=== PATIENT | female | born 1960 | race Caucasian/White ===

== ENCOUNTER → 2017-08-14 08:52 | Outpatient (CLI) | payer BC, SELFPAY ==
[2017-08-14 09:34] LABS: Basophils % 0.5 % (0.1-2.0); Eosinophils # 0.2 K/mm3 (0.0-0.4); Eosinophils % 2.6 % (0.1-12.0); Hematocrit 40.7 % (37.0-47.0); Hemoglobin 13.3 g/dL (12.2-16.2); Lymphocytes # 2.5 K/mm3 (0.7-4.5); Lymphocytes % 27.4 K/mm3 (10-50); Mean Corpuscular HGB Conc 32.7 g/dL (31.8-35.4); Mean Corpuscular Volume 91.5 fl (81-99); Monocytes # 0.4 K/mm3 (0.1-1.0); Monocytes % 4.6 % (1.7-9.3); Neutrophils # 5.8 K/mm3 (1.8-7.8); Neutrophils % 64.8 % (37.0-80.0); Platelet Count 319 K/mm3 (142-424); Red Blood Count 4.45 M/mm3 (4.20-5.40); Red Cell Distribution Width 14.7 % (11.5-17.5); White Blood Count 8.9 K/mm3 (4.8-10.8)
[2017-08-14 11:01] LABS: Alanine Aminotransferase 32 U/L (12-78); Albumin/Globulin Ratio 1.1 (1.1-1.8); Alkaline Phosphatase 81 U/L (46-116); Anion Gap 15.1 mEq/L (5-15); Aspartate Amino Transferase 21 U/L (15-37); Bilirubin,Total 0.5 mg/dL (0.2-1.0); Blood Urea Nitrogen 28 mg/dL (7-18); Calcium 9.5 mg/dL (8.5-10.1); Carbon Dioxide 27 mmol/L (21.0-32.0); Chloride 100 mmol/L (98-107); Chol/HDL Ratio 5.9 (1-3.5); Cholesterol 236 mg/dL (140-200); Creatinine,Serum 1.06 mg/dL (0.55-1.02); Estimated Glomerular Filt Rate 54 ml/min (>60); GFR (African American) 65 ML/MIN (>60); Globulin 3.6 gm/dl (1.3-3.2); Glucose 129 mg/dL (74-106); HDL Cholesterol 40 mg/dL (29-89); LDL Cholesterol 136 mg/dL (0-130); Potassium 4.1 mmoL/L (3.5-5.1); Sodium 138 mmol/L (136-145); Thyroid Stimulating Hormone 0.89 uIU/ml (0.358-3.740); Total Protein,Serum 7.6 gm/dL (6.4-8.2); Triglycerides 299 mg/dL (30-200); Uric Acid 5.9 mg/dL (2.6-7.2); VLDL Cholesterol 60 mg/dL (0-40)
== END ==
PROVIDERS: PCP Family Medicine; Visit Provider Family Medicine
DX: E78.5 Hyperlipidemia, unspecified (principal); I10 Essential (primary) hypertension; E03.9 Hypothyroidism, unspecified; E79.0 Hyperuricemia without signs of inflammatory arthritis and tophaceous disease
CPT/HCPCS: 36415; 80053; 80061; 83036; 84443; 84550; 85025

== ENCOUNTER → 2017-09-04 14:51 | Outpatient (CLI) | payer BC, SELFPAY ==
[2017-09-04 15:47] LABS: Erythrocyte Sedimentation Rate 37 mm/hr (0-30)
[2017-09-04 16:52] LABS: C-Reactive Protein 2.9 mg/L (0.0-0.9); Calcium 9.4 mg/dL (8.5-10.1); Magnesium 1.9 mg/dL (1.4-2.2); Potassium 4.4 mmoL/L (3.5-5.1)
[2017-09-07 06:31] LABS: Antinuclear Antibodies, IFA Negative (.); Folate >20.0 ng/mL (>3.0); RA Latex Turbid. <10.0 IU/mL (0.0-13.9); Vitamin B12 645 pg/mL (232-1245); Vitamin D 25 Hydroxy 39.9 ng/mL (30.0-100.0)
[2017-09-12 14:28] LABS: HLA-B27 Positive (.)
== END ==
PROVIDERS: Visit Provider Podiatrist
DX: M06.879 Other specified rheumatoid arthritis, unspecified ankle and foot (principal); D64.9 Anemia, unspecified
CPT/HCPCS: 36415; 82310; 82607; 82652; 82746; 83735; 84132; 85651; 86038; 86140; 86431; 86812

== ENCOUNTER → 2019-12-11 14:22 | Outpatient (POV) | payer BC, SELFPAY | DX: Z00.00 Encounter for general adult medical examination without abnormal findings (principal) ==

== ENCOUNTER → 2020-05-07 13:27 | Outpatient (CLI) | payer BC, SELFPAY ==
[2020-05-08 08:15] LABS: Covid-19 Nasal PCR Sendout P&C POSITIVE
== END ==
PROVIDERS: PCP Family Medicine; Visit Provider Family Medicine
DX: Z20.822 Contact with and (suspected) exposure to COVID-19 (principal); U07.1 COVID-19
CPT/HCPCS: U0004

== ENCOUNTER 2020-08-18 11:59 | Inpatient (IN) | payer BC, SELFPAY ==
[2020-08-18] VITALS (18 sets, daily range): BP systolic 82–162; BP diastolic 50–82; PULSE 68–84; RESP 12–20; TEMP 36.6–37.2; O2SAT 94–99; BMI 38.7
--- NOTE | 2020-08-18 11:08 | US_ITS ---
PROCEDURE: US EXTREMITY LT LIMITED CLINICAL INDICATION: ABSCESS Cellulitis, left groin mass with fever COMPARISON: No exams were available for comparison FINDINGS: There is subcutaneous edema. There is somewhat lunar shaped area of I so echogenicity present in the subcutaneous region in the left inguinal area. This measures approximately 10 cm in with and 2.5 cm in depth. There are low level echoes within this region. This region is fairly well circumscribed. Along the periphery of this area there is slight increased echogenicity. Suspect that the semilunar area represents an abscess. Phlegmonous changes also consideration. CT of the thigh/inguinal area with contrast suggested for confirmation. The patient was very tender and could not tolerate compression of this region. IMPRESSION: Abnormal ultrasound of the left groin with the fairly well-circumscribed semilunar shaped area of slight decreased echogenicity with low level echoes suspicious for an abscess. Suggest CT with contrast for confirmation. Dictated by: Giovanni Gonzalez MD 08/18/2020 13:32 Giovanni Gonzalez MD in [place] 08/18/2020 13:32
--- NOTE | 2020-08-18 12:55 | HMH.PHAVTE ---
[facility] Pharmacy VTE Monitoring - Patient Demographics Admission date: 08/18/20 Report Date: 08/18/20 Time: 12:55 Allergies/Adverse Reactions: Patient Allergies PCN (PENICILLIN) Allergy (Unknown, Uncoded 04/11/17 14:35) I-RASH Height: 1.68 m Weight: 108.862 kg - Prophylaxis VTE Prophylaxis Ordered?: Yes Types of VTE Prophylaxis: TEDS Knee High Location of Applied Device: Bilateral Lower Extremeties
[2020-08-18 12:57] LABS: Basophils % 0.2 % (0.1-2.0); Eosinophils # 0.2 K/mm3 (0.0-0.4); Hematocrit 34.6 % (37.0-47.0); Hemoglobin 11.6 g/dL (12.2-16.2); Lymphocytes # 1.9 K/mm3 (0.7-4.5); Lymphocytes % 10.6 % (10-50); Mean Corpuscular HGB Conc 33.6 g/dL (31.8-35.4); Mean Corpuscular Volume 89.2 fl (81-99); Monocytes % 5.6 % (1.7-9.3); Neutrophils # 14.8 K/mm3 (1.8-7.8); Neutrophils % 82.5 % (37.0-80.0); Platelet Count 384 K/mm3 (142-424); Red Blood Count 3.89 M/mm3 (4.20-5.40); Red Cell Distribution Width 15.1 % (11.5-17.5)
[2020-08-18 13:00] LABS: MANUAL DIFFERENTIAL MANUAL DIFFERENTIAL (MANUAL DIFF)
[2020-08-18 13:01] LABS: Chloride 95 mmol/L (98-107); Sodium 135 mmol/L (136-145)
[2020-08-18 13:04] LABS: Alanine Aminotransferase 47 U/L (12-78); Albumin Level 4.4 g/dl (3.5-5.0); Albumin/Globulin Ratio 1.1 (1.1-1.8); Alkaline Phosphatase 141 U/L (38-126); Aspartate Amino Transferase 39 U/L (14-36); Bilirubin,Total 0.8 mg/dl (0.2-1.3); Blood Urea Nitrogen 36 mg/dl (7-17); Carbon Dioxide 25 mmol/L (22.0-30.0); Creatinine Clearance Estimated 52 mL/min (50-200); Estimated Glomerular Filt Rate 26 ml/min (>60); GFR (African American) 31 ML/MIN (>60); Globulin 3.9 g/dL (1.3-3.2); Total Protein,Serum 8.3 g/dl (6.3-8.2)
[2020-08-18 13:05] LABS: Calcium 10.1 mg/dl (8.4-10.2); Glucose 149 mg/dl (74-100)
--- NOTE | 2020-08-18 13:16 | HMH.PHACONS ---
- Pharmacy Consult Date: 08/18/20 Time: 13:16 Referring provider: DR. MAYEN Reason for Consult:: VANCOMYCIN DOSING Allergies and ADEs:: Allergies Allergy/AdvReac Type Severity Reaction Status Date / Time Penicillins Allergy Mild Rash Verified 08/18/20 13:02 Home Medications:: Home Medications Medication Instructions Recorded Confirmed Type allopurinol 300 mg tablet 300 mg PO DAILY #90 tab 03/18/19 08/18/20 History amlodipine 5 mg-valsartan 320 mg 1 tab PO DAILY #90 tab 03/18/19 03/18/19 History tablet celecoxib 200 mg capsule 200 mg PO DAILY #90 cap 03/18/19 08/18/20 History estradiol 0.5 mg tablet 0.5 mg PO DAILY #90 tab 03/18/19 08/18/20 History hydrochlorothiazide 25 mg tablet 50 mg PO DAILY #60 tab 03/18/19 08/18/20 History levothyroxine 150 mcg tablet 150 mcg PO DAILY #90 tab 03/18/19 08/18/20 History nebivolol 5 mg tablet 5 mg PO DAILY #30 tab 03/18/19 08/18/20 History omeprazole 20 mg capsule,delayed 20 mg PO DAILY #90 cap 03/18/19 08/18/20 History release spironolactone 25 mg tablet 25 mg PO DAILY #90 tab 03/18/19 08/18/20 History Sulfamethoxazole/Trimethoprim 1 tab PO BID 08/18/20 08/18/20 History [Sulfamethoxazole-Tmp Ds Tablet] Height: 1.68 m Weight: 108.862 kg Laboratory Results:: Laboratory Results - last 24 hr 08/18/20 12:45: WBC 18.0 H, RBC 3.89 L, Hgb 11.6 L, Hct 34.6 L, MCV 89.2, MCH 30.0, MCHC 33.6, RDW 15.1, Plt Count 384, MPV 8.0, Neut % (Auto) 82.5 H, Lymph % (Auto) 10.6, [place] % (Auto) 5.6, Eos % (Auto) 1.0, Baso % (Auto) 0.2, Neut # (Auto) 14.8 H, Lymph # (Auto) 1.9, [place] # (Auto) 1.0, Eos # (Auto) 0.2, Baso # (Auto) 0.0 08/18/20 12:45: Sodium 135 L, Potassium 4.0, Chloride 95 L, Carbon Dioxide 25, Anion Gap 19.0 H, BUN 36 H, Creatinine 2.00 H, Estimated Creat Clear 52, Estimated GFR 26 L, Est GFR ( Amer) 31 L, Glucose 149 H, Calcium 10.1, Total Bilirubin 0.8, AST 39 H, ALT 47, Alkaline Phosphatase 141 H, Total Protein 8.3 H, Albumin 4.4, Globulin 3.9 H, Albumin/Globulin Ratio 1.1 Medical History: Reports:: Hyperlipidemia, Hypertension Denies:: Cancer, Diabetes Mellitus Type 1, Diabetes Mellitus Type 2, MRSA Assessment and Plan - Assessment and plan all Dx Assessment and Plan for all problems:: Pharmacokinetic dosing service Objective: Patient: Floor: Age: 60 yo Serum creatinine: 2.00 mg/dL Height: 65.7 Inches Weight (kg): 109 Assessment: IBW (kg): 58.61 Dosing wt(kg): 109 Estimated Creatinine clearance (ml/min): 28.0 CRCL method: Cockcroft and Gault using ibw(default). Drug selected: Vancomycin Loading dose (mg): 0 Vd (liters): 92.6 (factor used: 0.85 L/kg) Fareed (hr-1): 0.028 Half life (hrs): 24.76 Recommended dose: 2250 mg Interval: 36 hrs Infusion time (hrs): 2.0 Predicted peak (mcg/mL): 37.2 Predicted trough (mcg/mL): 14.36 Total body weight is being used for vancomycin dosing. Recommendations: Give Vancomycin 2250 mg q 36 hrs with an expected Cpeak of 37.2 mcg/ml and an expected Ctrough of 14.36 mcg/ml Thank you for the consult, will continue to follow. ROSIE MCGOWAND
--- NOTE | 2020-08-18 13:27 | HMH.PHAINT ---
MEDICATION RECONCILIATION COMPLETED USING EXTERNAL FILL HISTORY AND PATIENT PROVIDED LIST
[2020-08-18 13:38] LABS: Eosinophils % 2 % (0-3); Lymphocytes % 21 % (10-50); Monocytes % 1 % (2-9); Neutrophils % 70 % (42-76); RBC Morphology Normal; Total Cells Counted 100
[2020-08-18 13:39] LABS: Platelet Estimate Normal
[2020-08-18 13:40] LABS: Toxic Granulation 1+
[2020-08-18 13:51] LABS: Adenovirus,PCR Not Detected (NotDetected); Bordetella Pertussis Not Detected (NotDetected); Chlamydophila Pneumoniae, PCR Not Detected (NotDetected); Coronavirus 19, PCR Not Detected (NotDetected); Coronavirus 229E Not Detected (NotDetected); Coronavirus NL63 Not Detected (NotDetected); Coronavirus OC43 Not Detected (NotDetected); Coronovirus HKU1,PCR Not Detected (NotDetected); Human Metapneumovirus Not Detected (NotDetected); Influenza A, PCR Not Detected (NotDetected); Influenza AH1, 2009 Not Detected (NotDetected); Influenza AH1, PCR Not Detected (NotDetected); Influenza AH3,PCR Not Detected (NotDetected); Influenza B, PCR Not Detected (NotDetected); Mycoplasma Pneumoniae, PCR Not Detected (NotDetected); Parainfluenza 1, PCR Not Detected (NotDetected); Parainfluenza 2, PCR Not Detected (NotDetected); Parainfluenza 3, PCR Not Detected (NotDetected); Parainfluenza 4, PCR Not Detected (NotDetected); Respiratory Syncytial Virus Not Detected (NotDetected); Rhinovirus/Enterovirus Not Detected (NotDetected)
--- NOTE | 2020-08-18 15:29 | HMH.HP ---
*Admission Date: 08/18/20 <WalterSamanthaLuann - 08/18/20 15:53> *Chief complaint: groin wound/infection <WaletrSamanthaLuann 08/18/20 15:53> *History of present illness: Ms. Spear is a 60-year-old female with a history of hypertension, esophageal reflux, hypothyroidism, and hyperlipidemia who has been treated for infection in the left groin area for a week. She initially was placed on doxycycline and when it did not improve she was seen in the office of [facility] by Dr. Hancock and was started on Septra. At that time the induration measured by 15 cm. She was again seen in the office today on 08/18/2018 with ongoing pain, erythema, swelling, and some drainage. She continued to have a fever the highest of which was 102. At this point the abscess had further induration and erythema extended from the inner groin area around to the buttocks. She states she initially had a blister which was popped during an ultrasound which is just been completed and therefore she has had some clear drainage. She has experienced some nausea and her appetite has not been as good. She has maintained hydration. She has not vomited. She has had no diarrhea but actually has experienced some constipation. She is voiding without difficulty. At the time of this exam patient is lying comfortably in the bed and is conversing with her . She has completed the ultrasound which reveals fairly well circumcised semilunar shaped area of slight decreased echogenicity with low-level echoes suspicious for an abscess. Initial laboratory data reveals white blood cell count of 8 18,000 with a hemoglobin of 11.6 and hematocrit of 34.6. Blood chemistries show sodium 135 and potassium of 4. BUN is 36 and creatinine is 2. Blood sugar is 149. AST is a little elevated at 39 with alkaline phosphatase of 141. <Luann Walter 08/18/20 15:53> [facility] History Medical History: Reports:: Gastroesophageal Reflux Disease(GERD), Hyperlipidemia, Hypertension Denies:: Cancer, Diabetes Mellitus Type 1, Diabetes Mellitus Type 2, MRSA <Luann Walter 08/18/20 15:53> *Have you ever received a pneumonia vaccine?: No <Luann Walter 08/18/20 15:53> *Have you received a flu vaccine this season?: Yes <Luann Walter 08/18/20 15:53> Other Medical History: Reports: Hypothyroidism <Luann Walter 08/18/20 15:53> Laterality Cases: Left: Arthroscopy Hip <Luann Walter 08/18/20 15:53> Other Surgeries: Yes: Hysterectomy-Total, Other (Bladder repair, kidney stone removal) <Luann Walter 08/18/20 15:53> Amputation: No <Luann Walter 08/18/20 15:53> Fractures: No <Luann Walter 08/18/20 15:53> Comment: Surgery for kidney stones. <Luann Walter 08/18/20 15:53> - *Social History Last grade of school completed: Some college <Luann Walter 08/18/20 15:53> Smoking Status: Never smoker <Luann Walter 08/18/20 15:53> Alcohol Intake: never <Luann Walter 08/18/20 15:53> Substance Use Type: denies use <Luann Walter 08/18/20 15:53> *Occupational Status:: employed <Luann Walter 08/18/20 15:53> Housing: house <Luann Walter 08/18/20 15:53> Household Members: spouse <Luann Walter 08/18/20 15:53> *Travel in the last 8 weeks: None <Luann Walter 08/18/20 15:53> Family Hx:: Diabetes, Heart Attack, Hyperlipidemia, Hypertension, Stroke <Luann Walter 08/18/20 15:53> Review of Systems - Review of Systems Left groin pain with soft mass which has increased in size over the past 5 days <Luann Walter 08/18/20 15:53> - Constitutional Reports fever(s) <Luann Walter 08/18/20 15:53> - Eyes Denies change in vision <Luann Walter 08/18/20 15:53> - ENT Denies dizziness, Denies ear pain, Denies sore throat <Luann Walter 08/18/20 15:53> - *Cardiovascular Reports leg swelling (Left leg surrounding the groin area), Denies chest pain, Denies shortness of breath, Denies rapid, pounding, or irregular heartbeat <Luann Walter - 08/18/20 15:53>
--- NOTE | 2020-08-18 15:30 | HMH.GSCON ---
*Admission Date: 08/18/20 *Reason for consult:: Left groin abscess *History of present illness: Patient is a 60-year-old female. She states that about 6 days ago she began developing symptoms consistent with soft tissue infection in the left groin area. She had been seen as an outpatient and started on doxycycline. However, her symptoms progressed and she was changed to sulfamethoxazole on 08/15/2020. She had contacted her primary care provider's office today stating that the area had continued to progress. She was seen and evaluated and admitted for inpatient management. Review of Systems - Review of Systems Review of systems:: pertinent systems reviewed and negative unless documented below [facility] History I have reviewed the patient's past medical history: Yes Medical History: Reports:: Hyperlipidemia, Hypertension Denies:: Cancer, Diabetes Mellitus Type 1, Diabetes Mellitus Type 2, MRSA *Have you ever received a pneumonia vaccine?: No *Have you received a flu vaccine this season?: Yes Other Surgeries: Yes: Hysterectomy-Total, Other (Bladder repair, kidney stone removal) Amputation: No Fractures: No - *Social History Last grade of school completed: Some college Smoking Status: Never smoker Alcohol Intake: never Substance Use Type: denies use *Occupational Status:: employed Housing: house Household Members: spouse *Travel in the last 8 weeks: None Family Hx:: Diabetes, Heart Attack, Stroke Meds Home Medications Medication Instructions Recorded Confirmed Type allopurinol 300 mg tablet 300 mg PO DAILY #90 tab 03/18/19 08/18/20 History amlodipine 5 mg-valsartan 320 mg 1 tab PO DAILY #90 tab 03/18/19 08/18/20 History tablet celecoxib 200 mg capsule 200 mg PO DAILY #90 cap 03/18/19 08/18/20 History estradiol 0.5 mg tablet 0.5 mg PO DAILY #90 tab 03/18/19 08/18/20 History hydrochlorothiazide 25 mg tablet 50 mg PO DAILY #60 tab 03/18/19 08/18/20 History levothyroxine 150 mcg tablet 150 mcg PO DAILY #90 tab 03/18/19 08/18/20 History nebivolol 5 mg tablet 5 mg PO DAILY #30 tab 03/18/19 08/18/20 History omeprazole 20 mg capsule,delayed 20 mg PO DAILY #90 cap 03/18/19 08/18/20 History release spironolactone 25 mg tablet 25 mg PO DAILY #90 tab 03/18/19 08/18/20 History Ascorbic Acid/Multivit-Min 1 packet PO BID 08/18/20 08/18/20 History [Emergen-C Immune Plus Packet] Calcium Carbonate/Vitamin D3 3 tab PO DAILY 08/18/20 08/18/20 History [Calcium 600+D Softgel] Inulin/Chromium Picolinate [Fiber 1 tab PO BID 08/18/20 08/18/20 History Gummies] Mv-Min/Folic/Vit K/Lut/[id number] 1 tab PO DAILY 08/18/20 08/18/20 History [Alive Women's 50 Plus Tablet] [place]-3/Dha/Epa/Fish Oil [[place] 3 1 cap PO DAILY 08/18/20 08/18/20 History 500 Softgel] Psyllium Husk [Daily Fiber] 1 cap PO BID 08/18/20 08/18/20 History Sulfamethoxazole/Trimethoprim 1 tab PO BID 08/18/20 08/18/20 History [Sulfamethoxazole-Tmp Ds Tablet] Allergies Allergy/AdvReac Type Severity Reaction Status Date / Time Penicillins Allergy Mild Rash Verified 08/18/20 13:02 Exam Vital signs and Labs for Last 24 Hours: Temp Pulse Resp BP Pulse Ox 97.8 F 84 20 162/73 H 97 08/18/20 12:21 08/18/20 13:00 08/18/20 13:00 08/18/20 12:21 08/18/20 13:00 Laboratory Results - last 24 hr 08/18/20 12:45: WBC 18.0 H, RBC 3.89 L, Hgb 11.6 L, Hct 34.6 L, MCV 89.2, MCH 30.0, MCHC 33.6, RDW 15.1, Plt Count 384, MPV 8.0, Neut % (Auto) 82.5 H, Lymph % (Auto) 10.6, [place] % (Auto) 5.6, Eos % (Auto) 1.0, Baso % (Auto) 0.2, Neut # (Auto) 14.8 H, Lymph # (Auto) 1.9, [place] # (Auto) 1.0, Eos # (Auto) 0.2, Baso # (Auto) 0.0, Total Counted 100, Neutrophils % (Manual) 70, Band Neutrophils % 6.0, Lymphocytes % (Manual) 21, Monocytes % (Manual) 1 L, Eosinophils % (Manual) 2, Toxic Granulation 1+, Platelet Estimate Normal, RBC Morphology Normal 08/18/20 12:45: Sodium 135 L, Potassium 4.0, Chloride 95 L, Carbon Dioxide 25, Anion Gap 19.0 H, BUN 36 H, Creatinine 2.00 H, Estimated
--- NOTE | 2020-08-18 16:25 | P.PN_ITS ---
[facility] Anesthesia Checklist - Structural Data Admitted From: Inpatient Planned Operative Procedure/s: i/d groin abcess Consent for Planned Operative Procedure(s) Verified: Yes - Airway Assessment C-Spine Mobility Assessed: Yes TMJ Mobility Assessed: Yes Dentition: Good Dentition - Neurological Assessment Level of Consciousness: Awake, Alert, Appropriate - Anesthesia Plan Anesthesia Risk discussed: Yes Anesthesia Plan: Verified ASA Class: II Anesthesia Type: General [facility] History I have reviewed the patient's past medical history: Yes Medical History: Reports:: Gastroesophageal Reflux Disease(GERD), Hyperlipidemia, Hypertension Denies:: Cancer, Diabetes Mellitus Type 1, Diabetes Mellitus Type 2, MRSA *Have you ever received a pneumonia vaccine?: No *Have you received a flu vaccine this season?: Yes Other Medical History: Reports: Hypothyroidism Anesthesia experience/problems:: none Laterality Cases: Left: Arthroscopy Hip Other Surgeries: Yes: Hysterectomy-Total, Other (Bladder repair, kidney stone removal) Amputation: No Fractures: No - *Social History Last grade of school completed: Some college Smoking Status: Never smoker Alcohol Intake: never Substance Use Type: denies use *Occupational Status:: employed Housing: house Household Members: spouse *Travel in the last 8 weeks: None Family Hx:: Diabetes, Heart Attack, Hyperlipidemia, Hypertension, Stroke
--- NOTE | 2020-08-18 16:37 | HMH.OPNOTE ---
Date of procedure: 08/18/20 Pre-op Diagnosis:: Left groin abscess Post-op Diagnosis:: Same Procedure performed:: Incision and drainage of complex deep left groin abscess with debridement of skin and subcutaneous tissue Surgeon:: Barry Hinton MD [employer] CONSULTANT:: Rob Villegas Anesthesia: GETA Estimated blood loss (mL): 40 Clinical Note:: Patient is a 60-year-old female. She states that about 6 days ago she began developing symptoms consistent with soft tissue infection in the left groin area. She had been seen as an outpatient and started on doxycycline. However, her symptoms progressed and she was changed to sulfamethoxazole on 08/15/2020. She had contacted her primary care provider's office today stating that the area had continued to progress. She was seen and evaluated and admitted for inpatient management. She was noted to have leukocytosis. She has had some fevers. Operative findings:: Large deep abscess in the left groin with some necrosis of subcutaneous tissues. Large amount of brown very foul-smelling pus present. Operative note:: Consent was obtained patient was taken emergently to the operating room. She is placed in a supine position. General anesthesia was induced. Area was prepped and draped in the standard surgical fashion. In the central area of fluctuance limited incision was made. Very large amount of very foul-smelling brown pus exuded from the wound. This was sent for aerobic and anaerobic culture. The wound was probed. There was underlying abscess cavity tunneling. The overlying skin was incised with electrocautery. Underlying tissue was consistent with a necrotizing cellulitis. There was some evidence of greenish blackish subcutaneous tissue which was sent for specimen. The wound was thoroughly irrigated with approximately 4 L of pulsatile saline irrigation using the RIISnet interpulse device. Overall size of the wound at completion measured 15 cm long by 4 cm in width. There was 6 cm undermining superiorly. Medially there was 5 cm of tunneling and laterally 7 cm of tunneling. Depth of the wound is estimated at 3 to 4 cm. There was good hemostasis. Local anesthetic was infiltrated. Wound was packed with an entire saline moistened Kerlix gauze and covered with clean dry sterile dressings. Condition: stable Disposition: PACU Specimens:: Debrided tissue Culture sent Complications:: None immediately apparent
--- NOTE | 2020-08-18 16:43 | P.PN_ITS ---
[facility] Anesthesia Record Part I Intake, IV Amount: 500 Estimated blood loss (mL): 0 Urine output (mL): 0 Blood Pressure: 82/50 SaO2: 98 Pulse Rate: 74 Respiratory Rate: 12 Temperature: 98.1 F Patient is:: Awake, Stable Stable to PACU at:: 16:40
--- NOTE | 2020-08-18 17:03 | PC.NURSE ---
charted 2 hour check at wrong time. patient not in room at this time.
--- NOTE | 2020-08-18 17:07 | SUR.PHASEI ---
170-detailed report called to AleksRN
[2020-08-18 18:30] LABS: Lactic Acid 0.7 mmol/L (0.7-2.1)
[2020-08-19] VITALS (24 sets, daily range): BP systolic 96–153; BP diastolic 50–90; PULSE 57–95; RESP 12–20; TEMP 36.2–36.8; O2SAT 92–100; BMI 39.6
--- NOTE | 2020-08-19 03:03 | PC.NURSE ---
NO acute changes overnight. Pt slept well through the night, no c/o pain or discomfort. Lungs CTA, on room air. Pt able to ambulate in room independently. drsg on groin CDI. IV patent, NS @ 150. VSS, call light in reach, no concerns at this time.
--- NOTE | 2020-08-19 07:00 | P.PN_ITS ---
Subjective Narrative: Patient without complaints. Interestingly denies pain. Progress Note: A&P (1) Inguinal abscess Status: Acute Assessment and plan: Given the degree of the wound and soft tissue infection I feel it may be reasonable for return to operating room with dressing change under anesthesia and washout and placement of VAC dressing. (2) Hypertension Status: Chronic (3) Hypothyroidism Status: Chronic (4) Renal insufficiency Status: Acute Exam Vital signs and Labs for Last 24 Hours: Temp Pulse Resp BP Pulse Ox 98.1 F 62 16 99/55 L 95 08/19/20 03:34 08/19/20 03:34 08/19/20 03:34 08/19/20 03:34 08/19/20 03:34 Laboratory Results - last 24 hr 08/18/20 12:45: WBC 18.0 H, RBC 3.89 L, Hgb 11.6 L, Hct 34.6 L, MCV 89.2, MCH 30.0, MCHC 33.6, RDW 15.1, Plt Count 384, MPV 8.0, Neut % (Auto) 82.5 H, Lymph % (Auto) 10.6, [place] % (Auto) 5.6, Eos % (Auto) 1.0, Baso % (Auto) 0.2, Neut # (Auto) 14.8 H, Lymph # (Auto) 1.9, [place] # (Auto) 1.0, Eos # (Auto) 0.2, Baso # (Auto) 0.0, Total Counted 100, Neutrophils % (Manual) 70, Band Neutrophils % 6.0, Lymphocytes % (Manual) 21, Monocytes % (Manual) 1 L, Eosinophils % (Manual) 2, Toxic Granulation 1+, Platelet Estimate Normal, RBC Morphology Normal 08/18/20 12:45: Sodium 135 L, Potassium 4.0, Chloride 95 L, Carbon Dioxide 25, Anion Gap 19.0 H, BUN 36 H, Creatinine 2.00 H, Estimated Creat Clear 52, E stimated GFR 26 L, Est GFR ( Amer) 31 L, Glucose 149 H, Calcium 10.1, Total Bilirubin 0.8, AST 39 H, ALT 47, Alkaline Phosphatase 141 H, Total Protein 8.3 H, Albumin 4.4, Globulin 3.9 H, Albumin/Globulin Ratio 1.1 08/18/20 13:20: Chlamy pneumoniae PCR Not detected, Adenovirus (PCR) Not detected, B. pertussis DNA (PCR) Not detected, Coronavirus OC43 (PCR) Not detected, Coronavirus HKU1 (PCR) Not detected, Coronavirus 229E (PCR) Not detected, SARS-CoV-2 (PCR) Not detected, Coronavirus NL63 (PCR) Not detected, Human Metapneumovir PCR Not detected, Influenza A (H1) PCR Not detected, Influ A (H1N1/09) PCR Not detected, Influenza A (H3) PCR Not detected, Influenza Type A (PCR) Not detected, Influenza Type B (PCR) Not detected, M. pneumoniae (PCR) Not detected, Parainfluenza 1 (PCR) Not detected, Parainfluenza 2 (PCR) Not detected, Parainfluenza 3 (PCR) Not detected, Parainfluenza 4 (PCR) Not detected, RSV (PCR) Not detected, Entero/Rhino (PCR) Not detected 08/18/20 18:14: Lactate 0.7 I & O for Last 24 hours: Intake & Output 08/16/20 08/17/20 08/18/20 08/19/20 11:59 11:59 11:59 11:59 Intake Total 2470 / 2470 Output Total 0 / 0 Balance 2470 / 2470 Weight 247 lb 1 oz Microbiology Reports for the Last 24 Hours: Microbiology 08/18/20 14:10 Groin - Abscess Gram Stain - Final - *Routine Skin Exam Comments: Wound dressed
--- NOTE | 2020-08-19 08:02 | HMH.ACPN2 ---
<Sandra Iraheta - Last Filed: 08/19/20 08:02> Internal Medicine - PN: Subj *Date: 08/19/20 *Time: 08:02 Interval history: Patient states she is feeling a little bit better today. She does have some soreness in her left hip and inguinal area. She states she was able to rest last night. She is not had breakfast this morning because Dr. Hinton is planning to take her back down to the OR for dressing change under anesthesia and washout and placement of VAC dressing. Exam Vital signs and Labs for Last 24 Hours: Temp Pulse Resp BP Pulse Ox 98.1 F 62 16 99/55 L 95 08/19/20 03:34 08/19/20 03:34 08/19/20 03:34 08/19/20 03:34 08/19/20 03:34 Laboratory Results - last 24 hr 08/18/20 12:45: WBC 18.0 H, RBC 3.89 L, Hgb 11.6 L, Hct 34.6 L, MCV 89.2, MCH 30.0, MCHC 33.6, RDW 15.1, Plt Count 384, MPV 8.0, Neut % (Auto) 82.5 H, Lymph % (Auto) 10.6, [place] % (Auto) 5.6, Eos % (Auto) 1.0, Baso % (Auto) 0.2, Neut # (Auto) 14.8 H, Lymph # (Auto) 1.9, [place] # (Auto) 1.0, Eos # (Auto) 0.2, Baso # (Auto) 0.0, Total Counted 100, Neutrophils % (Manual) 70, Band Neutrophils % 6.0, Lymphocytes % (Manual) 21, Monocytes % (Manual) 1 L, Eosinophils % (Manual) 2, Toxic Granulation 1+, Platelet Estimate Normal, RBC Morphology Normal 08/18/20 12:45: Sodium 135 L, Potassium 4.0, Chloride 95 L, Carbon Dioxide 25, Anion Gap 19.0 H, BUN 36 H, Creatinine 2.00 H, Estimated Creat Clear 52, Estimated GFR 26 L, Est GFR ( Amer) 31 L, Glucose 149 H, Calcium 10.1, Total Bilirubin 0.8, AST 39 H, ALT 47, Alkaline Phosphatase 141 H, Total Protein 8.3 H, Albumin 4.4, Globulin 3.9 H, Albumin/Globulin Ratio 1.1 08/18/20 13:20: Chlamy pneumoniae PCR Not detected, Adenovirus (PCR) Not detected, B. pertussis DNA (PCR) Not detected, Coronavirus OC43 (PCR) Not detected, Coronavirus HKU1 (PCR) Not detected, Coronavirus 229E (PCR) Not detected, SARS-CoV-2 (PCR) Not detected, Coronavirus NL63 (PCR) Not detected, Human Metapneumovir PCR Not detected, Influenza A (H1) PCR Not detected, Influ A (H1N1/09) PCR Not detected, Influenza A (H3) PCR Not detected, Influenza Type A (PCR) Not detected, Influenza Type B (PCR) Not detected, M. pneumoniae (PCR) Not detected, Parainfluenza 1 (PCR) Not detected, Parainfluenza 2 (PCR) Not detected, Parainfluenza 3 (PCR) Not detected, Parainfluenza 4 (PCR) Not detected, RSV (PCR) Not detected, Entero/Rhino (PCR) Not detected 08/18/20 18:14: Lactate 0.7 I & O for Last 24 hours: Intake & Output 08/16/20 08/17/20 08/18/20 08/19/20 11:59 11:59 11:59 11:59 Intake Total 2470 / 2470 Output Total 0 / 0 Balance 2470 / 2470 Weight 247 lb 1 oz Microbiology Reports for the Last 24 Hours: Microbiology 08/18/20 14:10 Groin - Abscess Gram Stain - Final - Constitutional no acute distress - *Routine Respiratory Exam Present: CTA bilaterally - *Routine Cardiovascular Exam Present: RRR - *Routine Abdominal Exam Present: soft, normoactive bowel sounds. Absent: tenderness - *Routine Extremities Exam Absent: cyanosis, clubbing, edema - *Routine Skin Exam Present: warm. Absent: rash Comments: dressing in place in the left inguinal area - *Routine Neurological Exam Present: alert, oriented X3 Assessment and Plan (1) Inguinal abscess Status: Acute Category: Medical Code(s): L02.214 - Cutaneous abscess of groin (2) Hypertension Status: Chronic Category: Medical Code(s): I10 - Essential (primary) hypertension (3) Hypothyroidism Status: Chronic Category: Medical Code(s): E03.9 - Hypothyroidism, unspecified (4) Renal insufficiency Status: Acute Category: Medical Code(s): N28.9 - Disorder of kidney and ureter, unspecified - Assessment and plan all Dx Assessment and Plan for all problems:: Patient is going back to the OR today. Surgery to continue to follow. <Evelio Hancock - Last Filed: 08/19/20 08:50> Internal Medicine - PN: Subj *Date: 08/19/20 *Time: 08:48
--- NOTE | 2020-08-19 09:20 | HMH.ANESII ---
[facility] Anesthesia Record Part II Discharge Time: 17:10 Destination: floor PACU nurse assessment reviewed?: Yes Patient Condition:: Good Anesthesia Complications:: None Swallowing reflex intact?: Yes Cyanosis?: No Blood Pressure: 137/63 Pulse Rate: 74 Temperature: 98.0 F Mental Status: Alert & Oriented Pain level:: 0 Nausea and/or vomitting:: None Intake, IV Amount: 1,000
[2020-08-19 09:21] LABS: Basophils % 0.1 % (0.1-2.0); Eosinophils % 0.1 % (0.1-12.0); Hematocrit 31.3 % (37.0-47.0); Lymphocytes # 1.5 K/mm3 (0.7-4.5); Lymphocytes % 8.8 % (10-50); Mean Corpuscular HGB Conc 31.8 g/dL (31.8-35.4); Mean Corpuscular Volume 91.2 fl (81-99); Mean Platelet Volume 8.2 fl (7.4-10.4); Monocytes # 0.5 K/mm3 (0.1-1.0); Monocytes % 2.8 % (1.7-9.3); Neutrophils # 14.7 K/mm3 (1.8-7.8); Neutrophils % 88.2 % (37.0-80.0); Platelet Count 329 K/mm3 (142-424); Red Blood Count 3.43 M/mm3 (4.20-5.40); Red Cell Distribution Width 15.1 % (11.5-17.5); White Blood Count 16.7 K/mm3 (4.8-10.8)
[2020-08-19 09:22] LABS: Hemoglobin 9.9 g/dL (12.2-16.2); MANUAL DIFFERENTIAL MANUAL DIFFERENTIAL (MANUAL DIFF)
[2020-08-19 09:23] LABS: Chloride 103 mmol/L (98-107); Potassium 4.9 mmoL/L (3.5-5.1); Sodium 137 mmol/L (136-145)
[2020-08-19 09:26] LABS: Anion Gap 14.9 mEq/L (5-15); Blood Urea Nitrogen 33 mg/dl (7-17); Calcium 9.3 mg/dl (8.4-10.2); Carbon Dioxide 24 mmol/L (22.0-30.0); Creatinine Clearance Estimated 71 mL/min (50-200); Estimated Glomerular Filt Rate 36 ml/min (>60); GFR (African American) 43 ML/MIN (>60); Glucose 202 mg/dl (74-100)
--- NOTE | 2020-08-19 09:55 | HMH.PHACONS ---
- Pharmacy Consult Date: 08/19/20 Time: 09:55 Referring provider: VIKTORIYA Reason for Consult:: VANCOMYCIN DOSE CHANGE Allergies and ADEs:: Allergies Allergy/AdvReac Type Severity Reaction Status Date / Time Penicillins Allergy Mild Rash Verified 08/18/20 13:02 Home Medications:: Home Medications Medication Instructions Recorded Confirmed Type allopurinol 300 mg tablet 300 mg PO DAILY #90 tab 03/18/19 08/18/20 History amlodipine 5 mg-valsartan 320 mg 1 tab PO DAILY #90 tab 03/18/19 08/18/20 History tablet celecoxib 200 mg capsule 200 mg PO DAILY #90 cap 03/18/19 08/18/20 History estradiol 0.5 mg tablet 0.5 mg PO DAILY #90 tab 03/18/19 08/18/20 History hydrochlorothiazide 25 mg tablet 50 mg PO DAILY #60 tab 03/18/19 08/18/20 History levothyroxine 150 mcg tablet 150 mcg PO DAILY #90 tab 03/18/19 08/18/20 History nebivolol 5 mg tablet 5 mg PO DAILY #30 tab 03/18/19 08/18/20 History omeprazole 20 mg capsule,delayed 20 mg PO DAILY #90 cap 03/18/19 08/18/20 History release spironolactone 25 mg tablet 25 mg PO DAILY #90 tab 03/18/19 08/18/20 History Ascorbic Acid/Multivit-Min 1 packet PO BID 08/18/20 08/18/20 History [Emergen-C Immune Plus Packet] Calcium Carbonate/Vitamin D3 3 tab PO DAILY 08/18/20 08/18/20 History [Calcium 600+D Softgel] Inulin/Chromium Picolinate [Fiber 1 tab PO BID 08/18/20 08/18/20 History Gummies] Mv-Min/Folic/Vit K/Lut/Bdru401 1 tab PO DAILY 08/18/20 08/18/20 History [Alive Women's 50 Plus Tablet] Stuart-3/Dha/Epa/Fish Oil [[place]uart 3 1 cap PO DAILY 08/18/20 08/18/20 History 500 Softgel] Psyllium Husk [Daily Fiber] 1 cap PO BID 08/18/20 08/18/20 History Sulfamethoxazole/Trimethoprim 1 tab PO BID 04/27/21 04/27/21 History [Sulfamethoxazole-Tmp Ds Tablet] Height: 1.68 m Weight: 112.066 kg Laboratory Results:: Laboratory Results - last 24 hr 08/18/20 12:45: WBC 18.0 H, RBC 3.89 L, Hgb 11.6 L, Hct 34.6 L, MCV 89.2, MCH 30.0, MCHC 33.6, RDW 15.1, Plt Count 384, MPV 8.0, Neut % (Auto) 82.5 H, Lymph % (Auto) 10.6, [place] % (Auto) 5.6, Eos % (Auto) 1.0, Baso % (Auto) 0.2, Neut # (Auto) 14.8 H, Lymph # (Auto) 1.9, [place] # (Auto) 1.0, Eos # (Auto) 0.2, Baso # (Auto) 0.0, Total Counted 100, Neutrophils % (Manual) 70, Band Neutrophils % 6.0, Lymphocytes % (Manual) 21, Monocytes % (Manual) 1 L, Eosinophils % (Manual) 2, Toxic Granulation 1+, Platelet Estimate Normal, RBC Morphology Normal 08/18/20 12:45: Sodium 135 L, Potassium 4.0, Chloride 95 L, Carbon Dioxide 25, Anion Gap 19.0 H, BUN 36 H, Creatinine 2.00 H, Estimated Creat Clear 52, Estimated GFR 26 L, Est GFR ( Amer) 31 L, Glucose 149 H, Calcium 10.1, Total Bilirubin 0.8, AST 39 H, ALT 47, Alkaline Phosphatase 141 H, Total Protein 8.3 H, Albumin 4.4, Globulin 3.9 H, Albumin/Globulin Ratio 1.1 08/18/20 13:20: Chlamy pneumoniae PCR Not detected, Adenovirus (PCR) Not detected, B. pertussis DNA (PCR) Not detected, Coronavirus OC43 (PCR) Not detected, Coronavirus HKU1 (PCR) Not detected, Coronavirus 229E (PCR) Not detected, SARS-CoV-2 (PCR) Not detected, Coronavirus NL63 (PCR) Not detected, Human Metapneumovir PCR Not detected, Influenza A (H1) PCR Not detected, Influ A (H1N1/09) PCR Not detected, Influenza A (H3) PCR Not detected, Influenza Type A (PCR) Not detected, Influenza Type B (PCR) Not detected, M. pneumoniae (PCR) Not detected, Parainfluenza 1 (PCR) Not detected, Parainfluenza 2 (PCR) Not detected, Parainfluenza 3 (PCR) Not detected, Parainfluenza 4 (PCR) Not detected, RSV (PCR) Not detected, Entero/Rhino (PCR) Not detected 08/18/20 18:14: Lactate 0.7 08/19/20 09:02: WBC 16.7 H, RBC 3.43 L, Hgb 9.9 L D, Hct 31.3 L, MCV 91.2, MCH 29.0, MCHC 31.8, RDW 15.1, Plt Count 329, MPV 8.2, Neut % (Auto) 88.2 H, Lymph % (Auto) 8.8 L, [place] % (Auto) 2.8, Eos % (Auto) 0.1, Baso % (Auto) 0.1, Neut # (Auto) 14.7 H, Lymph # (Auto) 1.5, [place] # (Auto) 0.5, Eos # (Auto) 0.0, Baso # (Auto) 0.0 08/19/20 09:02: Sodium 137, Potassium 4.9 D, Chloride 103, Carbon [place]
[2020-08-19 11:33] LABS: Lymphocytes % 11 % (10-50); Monocytes % 3 % (2-9); Neutrophils % 86 % (42-76); Total Cells Counted 100
[2020-08-19 11:34] LABS: Platelet Estimate Normal; RBC Morphology Normal
--- NOTE | 2020-08-19 14:54 | P.OP_ITS ---
Date of procedure: 08/19/20 Pre-op Diagnosis:: Significant soft tissue infection and wound of the left groin Post-op Diagnosis:: Same Procedure performed:: Wound washout and application of negative pressure wound therapy type dressing Surgeon:: Barry Hinton MD SLOT EDITOR:: Other Anesthesia: LMA Estimated blood loss (mL): 10 Clinical Note:: Patient is a 60-year-old female. She was admitted yesterday with progressive soft tissue infection and abscess of the left groin area. She was taken emergently to the operating room yesterday afternoon and underwent incision and drainage of extensive complex left groin abscess. This was consistent with necrotizing cellulitis possibly anaerobic infection. Overall size of the wound at completion measured 15 cm long by 4 cm in width. There was 6 cm undermining superiorly. Medially there was 5 cm of tunneling and laterally 7 cm of tunneling. Depth of the wound is estimated at 3 to 4 cm. Due to the extensive nature of the wound plan was made for wound washout and dressing change under anesthesia. Operative findings:: Wound was relatively clean. No additional debridement was carried out. She does have persistent erythema with mild induration most notably laterally. Operative note:: Patient was taken to the operating room. She was positioned in the supine position. General anesthesia was induced via LMA. The area was prepped and draped in the standard surgical fashion after previous packing had been removed. Wound was inspected. There was no evidence of any tissue necrosis. She did have some focal persistent cellulitis around the wound which seemed to be more intense laterally. The wound was thoroughly irrigated with approximately 3 L of pulsatile saline irrigation using the [employer] interpulse device. Hemostasis was achieved with limited use of electrocautery. Local anesthetic was infiltrated. [employer] [facility] negative pressure wound therapy dressing apparatus was brought onto the field. Wound edges were cleansed. Foam was cut to the appropriate shape and size to cover the wound with placement in the region where there was undermining superiorly and tunneling laterally and medially. Smaller additional piece of foam was placed over of the deeper foam. Mastisol was applied to the skin. Occlusive dressing was then applied. Suction apparatus was secured to centrally. There was good seal. Patient tolerated procedure well with no immediate complications. Condition: stable Disposition: PACU Specimens:: None Complications:: None immediately apparent
--- NOTE | 2020-08-19 15:52 | HMH.ANESCL ---
[facility] Anesthesia Checklist - Patient Identification Patient Identification: Arm Band - Structural Data Admitted From: Inpatient Planned Operative Procedure/s: I & D Washout with wound vac placement Consent for Planned Operative Procedure(s) Verified: Yes Verified Documents: Surgical Consent, History and Physical - NPO Status Verified Time NPO: 00:00 - Airway Assessment C-Spine Mobility Assessed: Yes TMJ Mobility Assessed: Yes Dentition: Good Dentition - Neurological Assessment Level of Consciousness: Awake, Alert - Anesthesia Plan Anesthesia Risk discussed: Yes Anesthesia Plan: Verified ASA Class: III Anesthesia Type: MAC [facility] History Medical History: Reports:: Gastroesophageal Reflux Disease(GERD), Hyperlipidemia, Hypertension Denies:: Cancer, Diabetes Mellitus Type 1, Diabetes Mellitus Type 2, MRSA *Have you ever received a pneumonia vaccine?: No *Have you received a flu vaccine this season?: Yes Other Medical History: Reports: Hypothyroidism Anesthesia experience/problems:: none Laterality Cases: Left: Arthroscopy Hip Other Surgeries: Yes: Hysterectomy-Total, Other (Bladder repair, kidney stone removal) Amputation: No Fractures: No - *Social History Last grade of school completed: Some college Smoking Status: Never smoker Alcohol Intake: never Substance Use Type: denies use *Occupational Status:: employed Housing: house Household Members: spouse *Travel in the last 8 weeks: None Family Hx:: Diabetes, Heart Attack, Hyperlipidemia, Hypertension, Stroke
--- NOTE | 2020-08-19 15:53 | HMH.ANESI ---
[facility] Anesthesia Record Part I Intake, IV Amount: 700 Estimated blood loss (mL): 2 Urine output (mL): 0 Blood Pressure: 116/71 SaO2: 96 Pulse Rate: 92 Respiratory Rate: 12 Temperature: 97.2 F Patient is:: Awake Stable to PACU at:: 15:07
[2020-08-20] VITALS: BP 109/50; PULSE 74; TEMP 36.5; O2SAT 96
[2020-08-20 03:39] VITALS: BP 116/60; PULSE 62; RESP 18; TEMP 36.7; O2SAT 97
[2020-08-20 06:00] VITALS: BMI 39.5
--- NOTE | 2020-08-20 06:12 | PC.NURSE ---
Patient has rested with eyes closed most of this shift; voices no concerns and shows no s/s of acute distress at this time. Will continue to monitor.
--- NOTE | 2020-08-20 06:37 | HMH.GSPN ---
Subjective Patient reports: no new complaints Progress Note: A&P (1) Inguinal abscess Status: Acute Assessment and plan: Overall, doing well status post washout and wound VAC placement. Wound VAC change likely tomorrow Continue current antibiotics Follow-up final cultures (2) Hypertension Status: Chronic (3) Hypothyroidism Status: Chronic (4) Acute renal insufficiency Status: Acute Exam Vital signs and Labs for Last 24 Hours: Temp Pulse Resp BP Pulse Ox 98.0 F 62 18 116/60 97 08/20/20 03:39 08/20/20 03:39 08/20/20 03:39 08/20/20 03:39 08/20/20 03:39 Laboratory Results - last 24 hr 08/19/20 09:02: WBC 16.7 H, RBC 3.43 L, Hgb 9.9 L D, Hct 31.3 L, MCV 91.2, MCH 29.0, MCHC 31.8, RDW 15.1, Plt Count 329, MPV 8.2, Neut % (Auto) 88.2 H, Lymph % (Auto) 8.8 L, [place] % (Auto) 2.8, Eos % (Auto) 0.1, Baso % (Auto) 0.1, Neut # (Auto) 14.7 H, Lymph # (Auto) 1.5, [place] # (Auto) 0.5, Eos # (Auto) 0.0, Baso # (Auto) 0.0, Total Counted 100, Neutrophils % (Manual) 86 H, Lymphocytes % (Manual) 11, Monocytes % (Manual) 3, Platelet Estimate Normal, RBC Morphology Normal 08/19/20 09:02: Sodium 137, Potassium 4.9 D, Chloride 103, Carbon Dioxide 24, Anion Gap 14.9, BUN 33 H, Creatinine 1.50 H D, Estimated Creat Clear 71, Estimated GFR 36 L, Est GFR ( Amer) 43 L D, Glucose 202 H D, Calcium 9.3 I & O for Last 24 hours: Intake & Output 08/17/20 08/18/20 08/19/20 08/20/20 11:59 11:59 11:59 11:59 Intake Total 3470 / 3470 1300 / 1300 Output Total 0 / 0 Balance 3470 / 3470 1300 / 1300 Weight 247 lb 1 oz Microbiology Reports for the Last 24 Hours: Microbiology 08/18/20 14:10 Groin - Abscess Gram Stain - Final 08/18/20 14:10 Groin - Abscess Abscess Culture - Preliminary NO GROWTH AFTER 24 HOURS - Constitutional no acute distress - *Routine Respiratory Exam Absent: respiratory distress - *Routine Cardiovascular Exam Present: RRR - *Routine Skin Exam Comments: Wound VAC in good position. Currently with appropriate suction. Margin is clean. No spreading cellulitis.
[2020-08-20 07:38] VITALS: BP 149/74; PULSE 69; RESP 18; TEMP 36.3; O2SAT 97
[2020-08-20 08:07] LABS: Basophils # 0.1 K/mm3 (0-0.2); Basophils % 0.4 % (0.1-2.0); Eosinophils % 0.1 % (0.1-12.0); Hematocrit 29.7 % (37.0-47.0); Hemoglobin 9.3 g/dL (12.2-16.2); Lymphocytes # 2.4 K/mm3 (0.7-4.5); Mean Corpuscular HGB Conc 31.2 g/dL (31.8-35.4); Mean Corpuscular Hemoglobin 28.8 pg (27.0-31.2); Mean Corpuscular Volume 92.3 fl (81-99); Mean Platelet Volume 7.4 fl (7.4-10.4); Monocytes # 0.7 K/mm3 (0.1-1.0); Monocytes % 4.9 % (1.7-9.3); Neutrophils # 11.8 K/mm3 (1.8-7.8); Neutrophils % 78.6 % (37.0-80.0); Platelet Count 332 K/mm3 (142-424); Red Blood Count 3.22 M/mm3 (4.20-5.40); Red Cell Distribution Width 15.1 % (11.5-17.5); White Blood Count 15.1 K/mm3 (4.8-10.8)
[2020-08-20 08:09] LABS: Chloride 106 mmol/L (98-107); Potassium 4.6 mmoL/L (3.5-5.1); Sodium 139 mmol/L (136-145)
[2020-08-20 08:12] LABS: Blood Urea Nitrogen 35 mg/dl (7-17); Creatinine Clearance Estimated 82 mL/min (50-200); Estimated Glomerular Filt Rate 42 ml/min (>60); GFR (African American) 51 ML/MIN (>60)
[2020-08-20 08:13] LABS: Anion Gap 13.6 mEq/L (5-15); Calcium 9.1 mg/dl (8.4-10.2); Carbon Dioxide 24 mmol/L (22.0-30.0); Glucose 147 mg/dl (74-100)
[2020-08-20 08:25] LABS: MANUAL DIFFERENTIAL MANUAL DIFFERENTIAL (MANUAL DIFF)
--- NOTE | 2020-08-20 08:41 | HMH.ACPN2 ---
<Sandra Iraheta - Last Filed: 08/20/20 08:41> Internal Medicine - PN: Subj *Date: 08/20/20 *Time: 08:41 Interval history: Patient is concerned because her wound VAC was plugged in but the power was not working all day yesterday and all night. It was plugged and this morning and is now suctioning. She has minimal pain in the left groin area. She slept off and on throughout the night and was able to tolerate some breakfast. She is concerned about her medications. Exam Vital signs and Labs for Last 24 Hours: Temp Pulse Resp BP Pulse Ox 97.4 F L 69 18 149/74 H 97 08/20/20 07:38 08/20/20 07:38 08/20/20 07:38 08/20/20 07:38 08/20/20 07:38 Laboratory Results - last 24 hr 08/19/20 09:02: WBC 16.7 H, RBC 3.43 L, Hgb 9.9 L D, Hct 31.3 L, MCV 91.2, MCH 29.0, MCHC 31.8, RDW 15.1, Plt Count 329, MPV 8.2, Neut % (Auto) 88.2 H, Lymph % (Auto) 8.8 L, [place] % (Auto) 2.8, Eos % (Auto) 0.1, Baso % (Auto) 0.1, Neut # (Auto) 14.7 H, Lymph # (Auto) 1.5, [place] # (Auto) 0.5, Eos # (Auto) 0.0, Baso # (Auto) 0.0, Total Counted 100, Neutrophils % (Manual) 86 H, Lymphocytes % (Manual) 11, Monocytes % (Manual) 3, Platelet Estimate Normal, RBC Morphology Normal 08/19/20 09:02: Sodium 137, Potassium 4.9 D, Chloride 103, Carbon Dioxide 24, Anion Gap 14.9, BUN 33 H, Creatinine 1.50 H D, Estimated Creat Clear 71, Estimated GFR 36 L, Est GFR ( Amer) 43 L D, Glucose 202 H D, Calcium 9.3 08/20/20 07:43: WBC 15.1 H, RBC 3.22 L, Hgb 9.3 L, Hct 29.7 L, MCV 92.3, MCH 28.8, MCHC 31.2 L, RDW 15.1, Plt Count 332, MPV 7.4, Neut % (Auto) 78.6, Lymph % (Auto) 16.0, [place] % (Auto) 4.9, Eos % (Auto) 0.1, Baso % (Auto) 0.4, Neut # (Auto) 11.8 H, Lymph # (Auto) 2.4, [place] # (Auto) 0.7, Eos # (Auto) 0.0, Baso # (Auto) 0.1 08/20/20 07:43: Sodium 139, Potassium 4.6, Chloride 106, Carbon Dioxide 24, Anion Gap 13.6, BUN 35 H, Creatinine 1.30 H, Estimated Creat Clear 82, Estimated GFR 42 L, Est GFR ( Amer) 51 L, Glucose 147 H D, Calcium 9.1 I & O for Last 24 hours: Intake & Output 08/17/20 08/18/20 08/19/20 08/20/20 11:59 11:59 11:59 11:59 Intake Total 3470 / 3470 1660 / 1660 Output Total 0 / 0 Balance 3470 / 3470 1660 / 1660 Weight 247 lb 1 oz 246 lb 3 oz Microbiology Reports for the Last 24 Hours: Microbiology 08/18/20 14:10 Groin - Abscess Gram Stain - Final 08/18/20 14:10 Groin - Abscess Abscess Culture - Preliminary NO GROWTH AFTER 24 HOURS - Constitutional no acute distress - *Routine Cardiovascular Exam Present: RRR - *Routine Abdominal Exam Present: soft, normoactive bowel sounds. Absent: tenderness - *Routine Extremities Exam Absent: cyanosis, clubbing, edema - *Routine Skin Exam Comments: wound vac in place in the left groin and suctioning - *Routine Neurological Exam Present: alert, oriented X3 Assessment and Plan (1) Inguinal abscess Status: Acute Category: Medical Code(s): L02.214 - Cutaneous abscess of groin (2) Hypertension Status: Chronic Category: Medical Code(s): I10 - Essential (primary) hypertension (3) Hypothyroidism Status: Chronic Category: Medical Code(s): E03.9 - Hypothyroidism, unspecified (4) Acute renal insufficiency Status: Acute Category: Medical Code(s): N28.9 - Disorder of kidney and ureter, unspecified - Assessment and plan all Dx Assessment and Plan for all problems:: We will reorder some of her medications. Surgery to follow. <Evelio Hancock - Last Filed: 08/20/20 17:33> Internal Medicine - PN: Subj *Date: 08/20/20 *Time: 17:32 Exam Vital signs and Labs for Last 24 Hours: Temp Pulse Resp BP Pulse Ox 98.0 F 60 16 146/63 H 98 08/20/20 15:20 08/20/20 15:20 08/20/20 15:20 08/20/20 15:20 08/20/20 15:20 Laboratory Results - last 24 hr 08/20/20 07:43: WBC 15.1 H, RBC 3.22 L, Hgb 9.3 L, Hct 29.7 L, MCV 92.3, MCH 28.8, MCHC 31.2 L, RDW 15.1, Plt Count 332, MPV 7.4, Neut % (Aut
[2020-08-20 09:47] LABS: Lymphocytes % 17 % (10-50); Monocytes % 7 % (2-9); Neutrophils % 76 % (42-76); Platelet Estimate Normal; RBC Morphology Normal; Total Cells Counted 100
[2020-08-20 15:20] VITALS: BP 146/63; PULSE 60; RESP 16; TEMP 36.7; O2SAT 98
--- NOTE | 2020-08-20 16:46 | PC.NURSE ---
PATIENT A&O X3, LUNGS ARE CLEAR, PULSE EQUAL. NON PITTING EDEMA NOTED ON FEET. WOUND VAC IN PLACE AND WORKING. NO NEW CONCERNS OR NEEDS AT THIS TIME.
[2020-08-20 19:34] VITALS: BP 146/77; PULSE 65; RESP 18; TEMP 36.7; O2SAT 97
[2020-08-20 22:38] LABS: Vancomycin,Trough 10.8 ug/mL (5.0-10.0)
[2020-08-21 04:00] VITALS: BP 143/69; PULSE 65; RESP 18; TEMP 37.1; O2SAT 93
--- NOTE | 2020-08-21 04:40 | PC.NURSE ---
Trash and linens pulled and ice water passed at this time
--- NOTE | 2020-08-21 04:50 | PC.NURSE ---
pt AxOx4, lung sounds CTA, remains on room air, no complaints of SOA or pain this shift, non pitting edema noted to bilateral feet, wound vac in place
[2020-08-21 05:08] VITALS: BMI 39.4
[2020-08-21 07:54] LABS: Basophils # 0.1 K/mm3 (0-0.2); Basophils % 0.8 % (0.1-2.0); Eosinophils # 0.2 K/mm3 (0.0-0.4); Eosinophils % 1.2 % (0.1-12.0); Hematocrit 30.3 % (37.0-47.0); Hemoglobin 9.9 g/dL (12.2-16.2); Lymphocytes # 4.3 K/mm3 (0.7-4.5); Lymphocytes % 31.9 % (10-50); Mean Corpuscular HGB Conc 32.7 g/dL (31.8-35.4); Mean Corpuscular Hemoglobin 29.4 pg (27.0-31.2); Mean Corpuscular Volume 89.9 fl (81-99); Mean Platelet Volume 7.9 fl (7.4-10.4); Monocytes # 0.6 K/mm3 (0.1-1.0); Monocytes % 4.7 % (1.7-9.3); Neutrophils # 8.3 K/mm3 (1.8-7.8); Neutrophils % 61.5 % (37.0-80.0); Platelet Count 389 K/mm3 (142-424); Red Blood Count 3.37 M/mm3 (4.20-5.40); Red Cell Distribution Width 15.1 % (11.5-17.5); White Blood Count 13.5 K/mm3 (4.8-10.8)
--- NOTE | 2020-08-21 07:58 | HMH.GSPN ---
Subjective Patient reports: no new complaints Progress Note: A&P (1) Inguinal abscess Status: Acute Assessment and plan: Await cultures. Currently gram stain reveals GPC in chains and clusters and GNR. Could potentially need PICC line for home IV antibiotics. CBC pending this morning. (2) Hypertension Status: Chronic (3) Hypothyroidism Status: Chronic (4) Acute renal insufficiency Status: Acute Exam Vital signs and Labs for Last 24 Hours: Temp Pulse Resp BP Pulse Ox 98.7 F 65 18 143/69 H 93 L 08/21/20 04:00 08/21/20 04:00 08/21/20 04:00 08/21/20 04:00 08/21/20 04:00 Laboratory Results - last 24 hr 08/20/20 07:43: WBC 15.1 H, RBC 3.22 L, Hgb 9.3 L, Hct 29.7 L, MCV 92.3, MCH 28.8, MCHC 31.2 L, RDW 15.1, Plt Count 332, MPV 7.4, Neut % (Auto) 78.6, Lymph % (Auto) 16.0, [place] % (Auto) 4.9, Eos % (Auto) 0.1, Baso % (Auto) 0.4, Neut # (Auto) 11.8 H, Lymph # (Auto) 2.4, [place] # (Auto) 0.7, Eos # (Auto) 0.0, Baso # (Auto) 0.1, Total Counted 100, Neutrophils % (Manual) 76, Lymphocytes % (Manual) 17, Monocytes % (Manual) 7, Platelet Estimate Normal, RBC Morphology Normal 08/20/20 07:43: Sodium 139, Potassium 4.6, Chloride 106, Carbon Dioxide 24, Anion Gap 13.6, BUN 35 H, Creatinine 1.30 H, Estimated Creat Clear 82, Estimated GFR 42 L, Est GFR ( Amer) 51 L, Glucose 147 H D, Calcium 9.1 08/20/20 22:06: Vancomycin Trough 10.8 H I & O for Last 24 hours: Intake & Output 08/18/20 08/19/20 08/20/20 08/21/20 11:59 11:59 11:59 11:59 Intake Total 3470 / 3470 1660 / 1660 2222 / 2222 Output Total 0 / 0 Balance 3470 / 3470 1660 / 1660 2222 / 2222 Weight 247 lb 1 oz 246 lb 3 oz 245 lb Microbiology Reports for the Last 24 Hours: Microbiology 08/18/20 14:10 Groin - Abscess Gram Stain - Final 08/18/20 14:10 Groin - Abscess Abscess Culture - Preliminary NO GROWTH AFTER 48 HOURS 08/18/20 13:37 Blood Blood Culture - Preliminary NO GROWTH AFTER 48 HOURS 08/18/20 13:29 Blood Blood Culture - Preliminary NO GROWTH AFTER 48 HOURS - *Routine Skin Exam Comments: Wound dressed with VAC functioning. Less erythema.
[2020-08-21 08:00] VITALS: BP 154/73; PULSE 65; RESP 18; TEMP 37.3; O2SAT 98
[2020-08-21 08:05] LABS: Chloride 106 mmol/L (98-107); Potassium 4.4 mmoL/L (3.5-5.1); Sodium 137 mmol/L (136-145)
[2020-08-21 08:08] LABS: Anion Gap 11.4 mEq/L (5-15); Blood Urea Nitrogen 27 mg/dl (7-17); Carbon Dioxide 24 mmol/L (22.0-30.0); Creatinine Clearance Estimated 97 mL/min (50-200); Estimated Glomerular Filt Rate 51 ml/min (>60); GFR (African American) 62 ML/MIN (>60)
[2020-08-21 08:09] LABS: Calcium 9.2 mg/dl (8.4-10.2); Glucose 124 mg/dl (74-100)
--- NOTE | 2020-08-21 08:34 | HMH.ACPN2 ---
<Sandra Iraheta - Last Filed: 08/21/20 08:34> Internal Medicine - PN: Subj *Date: 08/21/20 *Time: 08:34 Interval history: Patient states that she ran a low-grade fever this morning. Dr. Hinton has seen the patient and feels she may need a PICC line for continued IV antibiotics. Her wound VAC is functioning normally. Exam Vital signs and Labs for Last 24 Hours: Temp Pulse Resp BP Pulse Ox 99.1 F 65 18 154/73 H 98 08/21/20 08:00 08/21/20 08:00 08/21/20 08:00 08/21/20 08:00 08/21/20 08:00 Laboratory Results - last 24 hr 08/20/20 07:43: Total Counted 100, Neutrophils % (Manual) 76, Lymphocytes % (Manual) 17, Monocytes % (Manual) 7, Platelet Estimate Normal, RBC Morphology Normal 08/20/20 22:06: Vancomycin Trough 10.8 H 08/21/20 07:34: Sodium 137, Potassium 4.4, Chloride 106, Carbon Dioxide 24, Anion Gap 11.4, BUN 27 H, Creatinine 1.10 H, Estimated Creat Clear 97, Estimated GFR 51 L, Est GFR ( Amer) 62 D, Glucose 124 H, Calcium 9.2 08/21/20 07:34: WBC 13.5 H, RBC 3.37 L, Hgb 9.9 L, Hct 30.3 L, MCV 89.9, MCH 29.4, MCHC 32.7, RDW 15.1, Plt Count 389, MPV 7.9, Neut % (Auto) 61.5, Lymph % (Auto) 31.9, [place] % (Auto) 4.7, Eos % (Auto) 1.2, Baso % (Auto) 0.8, Neut # (Auto) 8.3 H, Lymph # (Auto) 4.3, [place] # (Auto) 0.6, Eos # (Auto) 0.2, Baso # (Auto) 0.1 I & O for Last 24 hours: Intake & Output 08/18/20 08/19/20 08/20/20 08/21/20 11:59 11:59 11:59 11:59 Intake Total 3470 / 3470 1660 / 1660 2822 / 2822 Output Total 0 / 0 Balance 3470 / 3470 1660 / 1660 2822 / 2822 Weight 247 lb 1 oz 246 lb 3 oz 245 lb Microbiology Reports for the Last 24 Hours: Microbiology 08/18/20 14:10 Groin - Abscess Gram Stain - Final 08/18/20 14:10 Groin - Abscess Abscess Culture - Preliminary NO GROWTH AFTER 48 HOURS 08/18/20 13:37 Blood Blood Culture - Preliminary NO GROWTH AFTER 48 HOURS 08/18/20 13:29 Blood Blood Culture - Preliminary NO GROWTH AFTER 48 HOURS - Constitutional no acute distress - *Routine Respiratory Exam Present: CTA bilaterally - *Routine Cardiovascular Exam Present: RRR - *Routine Abdominal Exam Present: soft, normoactive bowel sounds. Absent: tenderness - *Routine Extremities Exam Absent: cyanosis, clubbing, edema - *Routine Skin Exam Present: warm. Absent: rash Comments: Wound VAC in place in left inguinal area and functioning normally - *Routine Neurological Exam Present: alert, oriented X3 Assessment and Plan (1) Inguinal abscess Status: Acute Category: Medical Code(s): L02.214 - Cutaneous abscess of groin (2) Hypertension Status: Chronic Category: Medical Code(s): I10 - Essential (primary) hypertension (3) Hypothyroidism Status: Chronic Category: Medical Code(s): E03.9 - Hypothyroidism, unspecified (4) Acute renal insufficiency Status: Acute Category: Medical Code(s): N28.9 - Disorder of kidney and ureter, unspecified - Assessment and plan all Dx Assessment and Plan for all problems:: White count is a little bit better this morning. Patient may need a PICC line. Will discuss with Dr. Hancock. <Evelio Hancock - Last Filed: 08/21/20 13:37> Internal Medicine - PN: Subj *Date: 08/21/20 *Time: 13:36 Exam Vital signs and Labs for Last 24 Hours: Temp Pulse Resp BP Pulse Ox 98.3 F 67 18 163/87 H 98 08/21/20 11:16 08/21/20 11:16 08/21/20 11:16 08/21/20 11:16 08/21/20 11:16 Laboratory Results - last 24 hr 08/20/20 22:06: Vancomycin Trough 10.8 H 08/21/20 07:34: Sodium 137, Potassium 4.4, Chloride 106, Carbon Dioxide 24, Anion Gap 11.4, BUN 27 H, Creatinine 1.10 H, Estimated Creat Clear 97, Estimated GFR 51 L, Est GFR ( Amer) 62 D, Glucose 124 H, Calcium 9.2 08/21/20 07:34: WBC 13.5 H, RBC 3.37 L, Hgb 9.9 L, Hct 30.3 L, MCV 89.9, MCH 29.4, MCHC 32.7, RDW 15.1, Plt Count 389, MPV 7.9, Neut % (Auto)
--- NOTE | 2020-08-21 08:59 | HMH.PHACONS ---
- Pharmacy Consult Date: 08/21/20 Time: 08:59 Referring provider: VIKTORIYA Reason for Consult:: VANCOMYCIN THERAPY MANAGEMENT FOR GROIN ABCESS Allergies and ADEs:: Allergies Allergy/AdvReac Type Severity Reaction Status Date / Time Penicillins Allergy Mild Rash Verified 08/18/20 13:02 Home Medications:: Home Medications Medication Instructions Recorded Confirmed Type allopurinol 300 mg tablet 300 mg PO DAILY #90 tab 03/18/19 08/18/20 History amlodipine 5 mg-valsartan 320 mg 1 tab PO DAILY #90 tab 03/18/19 08/18/20 History tablet celecoxib 200 mg capsule 200 mg PO DAILY #90 cap 03/18/19 08/18/20 History estradiol 0.5 mg tablet 0.5 mg PO DAILY #90 tab 03/18/19 08/18/20 History hydrochlorothiazide 25 mg tablet 50 mg PO DAILY #60 tab 03/18/19 08/18/20 History levothyroxine 150 mcg tablet 150 mcg PO DAILY #90 tab 03/18/19 08/18/20 History nebivolol 5 mg tablet 5 mg PO DAILY #30 tab 03/18/19 08/18/20 History omeprazole 20 mg capsule,delayed 20 mg PO DAILY #90 cap 03/18/19 08/18/20 History release spironolactone 25 mg tablet 25 mg PO DAILY #90 tab 03/18/19 08/18/20 History Ascorbic Acid/Multivit-Min 1 packet PO BID 08/18/20 08/18/20 History [Emergen-C Immune Plus Packet] Calcium Carbonate/Vitamin D3 3 tab PO DAILY 08/18/20 08/18/20 History [Calcium 600+D Softgel] Inulin/Chromium Picolinate [Fiber 1 tab PO BID 08/18/20 08/18/20 History Gummies] Mv-Min/Folic/Vit K/Lut/[id number] 1 tab PO DAILY 08/18/20 08/18/20 History [Alive Women's 50 Plus Tablet] [place]-3/Dha/Epa/Fish Oil [[place] 3 1 cap PO DAILY 08/18/20 08/18/20 History 500 Softgel] Psyllium Husk [Daily Fiber] 1 cap PO BID 08/18/20 08/18/20 History Sulfamethoxazole/Trimethoprim 1 tab PO BID 08/18/20 08/18/20 History [Sulfamethoxazole-Tmp Ds Tablet] Height: 1.68 m Weight: 111.13 kg Laboratory Results:: Laboratory Results - last 24 hr 08/20/20 07:43: Total Counted 100, Neutrophils % (Manual) 76, Lymphocytes % (Manual) 17, Monocytes % (Manual) 7, Platelet Estimate Normal, RBC Morphology Normal 08/20/20 22:06: Vancomycin Trough 10.8 H 08/21/20 07:34: Sodium 137, Potassium 4.4, Chloride 106, Carbon Dioxide 24, Anion Gap 11.4, BUN 27 H, Creatinine 1.10 H, Estimated Creat Clear 97, Estimated GFR 51 L, Est GFR ( Amer) 62 D, Glucose 124 H, Calcium 9.2 08/21/20 07:34: WBC 13.5 H, RBC 3.37 L, Hgb 9.9 L, Hct 30.3 L, MCV 89.9, MCH 29.4, MCHC 32.7, RDW 15.1, Plt Count 389, MPV 7.9, Neut % (Auto) 61.5, Lymph % (Auto) 31.9, Travis % (Auto) 4.7, Eos % (Auto) 1.2, Baso % (Auto) 0.8, Neut # (Auto) 8.3 H, Lymph # (Auto) 4.3, Travis # (Auto) 0.6, Eos # (Auto) 0.2, Baso # (Auto) 0.1 Medical History: Reports:: Gastroesophageal Reflux Disease(GERD), Hyperlipidemia, Hypertension Denies:: Cancer, Diabetes Mellitus Type 1, Diabetes Mellitus Type 2, MRSA Assessment and Plan (1) Inguinal abscess Status: Acute Category: Medical Code(s): L02.214 - Cutaneous abscess of groin (2) Hypertension Status: Chronic Category: Medical Code(s): I10 - Essential (primary) hypertension (3) Hypothyroidism Status: Chronic Category: Medical Code(s): E03.9 - Hypothyroidism, unspecified (4) Acute renal insufficiency Status: Acute Category: Medical Code(s): N28.9 - Disorder of kidney and ureter, unspecified - Assessment and plan all Dx Assessment and Plan for all problems:: CULTURES STILL PENDING. TROUGH = 10.8 ON 08/20/20 @2200. WILL DECREASE THE DOSING INTERVAL TO Q12H TO YIELD SLIGHTLY HIGHER TROUGH, WILL ALSO DECREASE DOSE TO 1500MG TO ENSURE TROUGH DOSE NOT GET TOO HIGH. PHARMACY WILL FOLLOW DAILY AND ADJUST NECESSARY
--- NOTE | 2020-08-21 09:43 | SW/DCPLANNER ---
Addendum entered by Rachana Anand 08/21/20 13:38: Wound vac will be delivered to patient today: patient understands to bring VAC to [facility] outpatient tomorrow for placement. Addendum entered by Rachana Anand 08/21/20 13:20: This patient has decided to return to [facility] twice a day for IV antibiotics, PICC care and wound vac care. Family was present in room and concurred with this plan. I have notified [facility] and [facility] that this patient will no longer need their services. Patient may discharge home later today. Addendum entered by Rachana Anand 08/21/20 11:37: Patient information has been faxed to [facility] for home health services (IV antibiotics and wound vac care) and to [facility] for IV Vanc 1500mg Q12x 14 days trough on 08/22/20 @ 9:30Am and Ertapenem 1gm x 14 days. Original Note: I have spoke with this patient this morning regarding discharge plans. Patient may need PICC line and IV antibiotics at time of discharge (pending cultures). Patient also has a wound VAC and will need dressing changes with this every three days. I have spoke with this patient regarding options for possible IV antibiotics and wound VAC care: home health vs returning to [facility] outpatient. Patient prefers to discharge home with home health services. I have explained to this patient that she could possibly have an out of pocket expense for home health services. I will fax patient information/order (pending cultures) to [facility] to clarify OOP expense. If patient can afford OOP then I will proceed to fax information/order to [facility] for home IV medication once medication is known. I will continue to follow up with: , cultures, patient, home health vs outpatient. Discharge date is unknown at this time.
--- NOTE | 2020-08-21 10:38 | XR_ITS ---
PROCEDURE: XR CHEST PORTABLE PICC PLAC CLINICAL HISTORY: Confirm PICC line placement COMPARISON: No exams were available for comparison FINDINGS: Left upper extremity PICC line has been inserted. The line is curled over the medial aspect of the left clavicle within the region of the subclavian vein. The tip of the catheter is not well visualize but is felt to be in the region the brachiocephalic vein on the left. The lungs are clear without infiltrates, suspicious nodules, or pleural effusions. No acute bony abnormalities. IMPRESSION: Left upper extremity PICC line is curled upon itself overlying the medial aspect of the left clavicle with the tip in the region of the brachiocephalic vein. Repositioning recommended. Dictated by: Giovanni Gonzalez MD 08/21/2020 12:34 Giovanni Gonzalez MD in [place] 08/21/2020 12:34
[2020-08-21 11:16] VITALS: BP 163/87; PULSE 67; RESP 18; TEMP 36.8; O2SAT 98
--- NOTE | 2020-08-21 13:31 | FL_ITS ---
PROCEDURE: FL GUIDED PICC PLACEMENT CLINICAL INDICATION: PICC PLACEMENT COMPARISON: No exams were available for comparison FINDINGS: Patient brought to the Radiology Department 4 PICC line repositioning. Fluoroscopic evaluation of the PICC line shows that the catheter has uncoiled with the tip of the catheter in the region of the SVC. No manipulate rojas performed. Fluoroscopy time: 54 seconds IMPRESSION: PICC line tip in the region the SVC. Dictated by: Giovanni Gonzalez MD 08/21/2020 15:32 Giovanni Gonzalez MD in [facility] 08/21/2020 15:32
[2020-08-21 14:53] VITALS: BP 147/74; PULSE 59; RESP 18; TEMP 36.6; O2SAT 99
--- NOTE | 2020-08-21 18:03 | PC.NURSE ---
Per Norris Rosario, PharmD- pt's PM dose of vanc can be given at 1800 and can be ran at 250 ml/hr due to pt already having a tolerance built up to vancomycin. Pt will be discharged after this dose
--- NOTE | 2020-08-28 17:56 | HMH.DCSUM ---
General - General Admission date:: 08/18/20 <Evelio Hancock - 09/05/20 08:30> 08/18/20 <Sandra Iraheta - 08/28/20 18:01> Discharge date: 08/21/20 <Sandra Iraheta - 08/28/20 18:01> HPI HPI: Ms. Spear is a 60-year-old female with a history of hypertension, esophageal reflux, hypothyroidism, and hyperlipidemia who has been treated for infection in the left groin area for a week. She initially was placed on doxycycline and when it did not improve she was seen in the office of [facility] by Dr. Hancock and was started on Septra. At that time the induration measured by 15 cm. She was again seen in the office today on 08/18/2018 with ongoing pain, erythema, swelling, and some drainage. She continued to have a fever the highest of which was 102. At this point the abscess had further induration and erythema extended from the inner groin area around to the buttocks. She states she initially had a blister which was popped during an ultrasound which is just been completed and therefore she has had some clear drainage. She has experienced some nausea and her appetite has not been as good. She has maintained hydration. She has not vomited. She has had no diarrhea but actually has experienced some constipation. She is voiding without difficulty. At the time of this exam patient is lying comfortably in the bed and is conversing with her . She has completed the ultrasound which reveals fairly well circumcised semilunar shaped area of slight decreased echogenicity with low-level echoes suspicious for an abscess. Initial laboratory data reveals white blood cell count of 8 18,000 with a hemoglobin of 11.6 and hematocrit of 34.6. Blood chemistries show sodium 135 and potassium of 4. BUN is 36 and creatinine is 2. Blood sugar is 149. AST is a little elevated at 39 with alkaline phosphatase of 141. <Sandra Iraheta - 08/28/20 18:01> Hospital Course Hospital Course: The patient was admitted and started on IV vancomycin. Dr. Hinton was consulted. He felt she had significant soft tissue infection with abscess formation in the left groin and he planned for operative incision and drainage with washout and possible debridement. He took the patient to the OR on 08/18/2020. Given the degree of wound and soft tissue infection, he felt it was reasonable to return to the operating room with a dressing change under anesthesia and perform another washout and placement of a wound VAC dressing. This was performed on 08/19/2020 and the patient tolerated the procedure well. She was continued on IV antibiotics. Her white blood cell count remained slightly elevated but her renal function improved. There was less erythema after placement of the wound VAC. Her blood cultures showed no growth. The culture from the groin abscess showed gram-positive cocci and is still pending. A PICC line was placed for continued outpatient IV antibiotics and she was stable to be discharged home. <Sandra Iraheta - 08/28/20 18:01> Objective Vital signs: Temp Pulse Resp BP Pulse Ox 97.9 F 59 L 18 147/74 H 99 08/21/20 14:53 08/21/20 14:53 08/21/20 14:53 08/21/20 14:53 08/21/20 14:53 <Evelio Hancock - 09/05/20 08:30> Temp Pulse Resp BP Pulse Ox 97.9 F 59 L 18 147/74 H 99 08/21/20 14:53 08/21/20 14:53 08/21/20 14:53 08/21/20 14:53 08/21/20 14:53 <Sandra Iraheta - 08/28/20 18:01> Narrative: - Constitutional no acute distress - *Routine Respiratory Exam Present: CTA bilaterally - *Routine Cardiovascular Exam Present: RRR - *Routine Abdominal Exam Present: soft, normoactive bowel sounds. Absent: tenderness - *Routine Extremities Exam Absent: cyanosis, clubbing, edema - *Routine Skin Exam Present: warm. Absent: rash Comments: Wound VAC in place in left inguinal area and functioning normally - *Routine Neurological Exam Present: alert, oriented X3 <Sandra Iraheta - 08/28
== END 2020-08-21 19:16 | disposition home or self-care (01) | DRG 580 ==
LOC: 2ND 12:10
PROVIDERS: Surgery; Admitting Provider Family Medicine; PCP Family Medicine; Visit Provider Family Medicine
PROC: 0J9C0ZZ Drainage of Pelvic Region Subcutaneous Tissue and Fascia, Open Approach (ICD-10-PCS; principal; 2020-08-18 16:00)
PROC: 2W17X6Z Compression of Left Inguinal Region using Pressure Dressing (ICD-10-PCS; principal; 2020-08-19 12:00)
DX: L02.214 Cutaneous abscess of groin (principal); L03.116 Cellulitis of left lower limb; I96 Gangrene, not elsewhere classified; I10 Essential (primary) hypertension; Z20.822 Contact with and (suspected) exposure to COVID-19; E03.9 Hypothyroidism, unspecified; Z88.0 Allergy status to penicillin; K21.9 Gastro-esophageal reflux disease without esophagitis; E78.5 Hyperlipidemia, unspecified; N28.9 Disorder of kidney and ureter, unspecified
CPT/HCPCS: 10061; 36569; 97605; 36415; 71045; 76882; 77001; 80048; 80053; 80202; 83605; 85007; 85025; 87040; 87070; 87075; 87077; 87205; 87581; 87633; 87798; C1751; J1335; J2405; J3370

== ENCOUNTER → 2020-08-22 08:53 | Outpatient (CLI) | payer BC, SELFPAY ==
[2020-08-22 09:00] VITALS: BP 154/62; PULSE 74; RESP 19
[2020-08-22 09:56] LABS: Vancomycin,Trough 19.8 ug/mL (5.0-10.0)
--- NOTE | 2020-08-22 10:16 | HMH.PHACONS ---
- Pharmacy Consult Date: 08/22/20 Time: 10:16 Referring provider: DR. MAYEN Reason for Consult:: VANCOMYCIN TROUGH LEVEL AND DOSE CHANGE Allergies and ADEs:: Allergies Allergy/AdvReac Type Severity Reaction Status Date / Time Penicillins Allergy Mild Rash Verified 08/18/20 13:02 Home Medications:: Home Medications Medication Instructions Recorded Confirmed Type allopurinol 300 mg tablet 300 mg PO DAILY #90 tab 03/18/19 08/18/20 History amlodipine 5 mg-valsartan 320 mg 1 tab PO DAILY #90 tab 03/18/19 08/18/20 History tablet celecoxib 200 mg capsule 200 mg PO DAILY #90 cap 03/18/19 08/18/20 History estradiol 0.5 mg tablet 0.5 mg PO DAILY #90 tab 03/18/19 08/18/20 History hydrochlorothiazide 25 mg tablet 50 mg PO DAILY #60 tab 03/18/19 08/18/20 History levothyroxine 150 mcg tablet 150 mcg PO DAILY #90 tab 03/18/19 08/18/20 History nebivolol 5 mg tablet 5 mg PO DAILY #30 tab 03/18/19 08/18/20 History omeprazole 20 mg capsule,delayed 20 mg PO DAILY #90 cap 03/18/19 08/18/20 History release spironolactone 25 mg tablet 25 mg PO DAILY #90 tab 03/18/19 08/18/20 History Ascorbic Acid/Multivit-Min 1 packet PO BID 08/18/20 08/18/20 History [Emergen-C Immune Plus Packet] Calcium Carbonate/Vitamin D3 3 tab PO DAILY 08/18/20 08/18/20 History [Calcium 600+D Softgel] Inulin/Chromium Picolinate [Fiber 1 tab PO BID 08/18/20 08/18/20 History Gummies] Mv-Min/Folic/Vit K/Lut/[id number] 1 tab PO DAILY 08/18/20 08/18/20 History [Alive Women's 50 Plus Tablet] [place]-3/Dha/Epa/Fish Oil [[place] 3 1 cap PO DAILY 08/18/20 08/18/20 History 500 Softgel] Psyllium Husk [Daily Fiber] 1 cap PO BID 08/18/20 08/18/20 History Sulfamethoxazole/Trimethoprim 1 tab PO BID 08/18/20 08/18/20 History [Sulfamethoxazole-Tmp Ds Tablet] Ertapenem Sodium [Invanz 1gm Vial] 1 gm IV Q24H vial 08/21/20 Rx Vancomycin HCl [Vancomycin 1000mg 1,500 mg IV Q12H vial 08/21/20 Rx Vial] Height: 1.68 m Weight: 111 kg Laboratory Results:: Laboratory Results - last 24 hr 08/22/20 09:29: Vancomycin Trough 19.8 H Medical History: Reports:: Gastroesophageal Reflux Disease(GERD), Hyperlipidemia, Hypertension Denies:: Cancer, Diabetes Mellitus Type 1, Diabetes Mellitus Type 2, MRSA Assessment and Plan - Assessment and plan all Dx Assessment and Plan for all problems:: BASED ON PATIENT FACTORS AND VANCOMYCIN TROUGH LEVEL OF 19.8 AFTER TWO DOSES OF 1,500MG Q12H, WILL GIVE 1,500MG DOSE TODAY AND THEN CHANGE TO 2,250MG Q24H STARTING 08/23/20. WILL OBTAIN TROUGH LEVEL/BMP ON 08/24/20 AND ADJUST DOSE FROM THAT POINT. -VENKATA BROWNING, PHARMD
== END ==
PROVIDERS: PCP Family Medicine; Visit Provider Surgery
DX: L02.214 Cutaneous abscess of groin (principal)
CPT/HCPCS: 80202; 96365; 96366; 96367; J1335; J3370

== ENCOUNTER → 2020-08-23 08:59 | Outpatient (CLI) | payer BC, SELFPAY | PROVIDERS: PCP Family Medicine; Visit Provider Surgery | DX: L02.214 Cutaneous abscess of groin (principal) | CPT/HCPCS: 96365; 96366; 96367; J1335; J3370 ==

== ENCOUNTER 2020-08-24 08:55 | Outpatient (CLI) | payer BC, SELFPAY ==
[2020-08-24] VITALS (7 sets, daily range): BP systolic 132–145; BP diastolic 66–74; PULSE 64–70; RESP 18; TEMP 36.7; O2SAT 97–98; BMI 38.7
[2020-08-24 09:52] LABS: Anion Gap 9.4 mEq/L (5-15); Blood Urea Nitrogen 20 mg/dl (7-17); Calcium 9.8 mg/dl (8.4-10.2); Carbon Dioxide 33 mmol/L (22.0-30.0); Chloride 98 mmol/L (98-107); Creatinine Clearance Estimated 95 mL/min (50-200); Estimated Glomerular Filt Rate 51 ml/min (>60); GFR (African American) 62 ML/MIN (>60); Glucose 126 mg/dl (74-100); Potassium 4.4 mmoL/L (3.5-5.1); Sodium 136 mmol/L (136-145)
[2020-08-24 09:58] LABS: Vancomycin,Trough 15.5 ug/mL (5.0-10.0)
--- NOTE | 2020-08-24 10:02 | HMH.PHACONS ---
- Pharmacy Consult Date: 08/24/20 Time: 10:02 Referring provider: DR. MAYEN Reason for Consult:: VANCOMYCIN TROUGH LEVEL Allergies and ADEs:: Allergies Allergy/AdvReac Type Severity Reaction Status Date / Time Penicillins Allergy Mild Rash Verified 08/18/20 13:02 Home Medications:: Home Medications Medication Instructions Recorded Confirmed Type allopurinol 300 mg tablet 300 mg PO DAILY #90 tab 03/18/19 08/18/20 History amlodipine 5 mg-valsartan 320 mg 1 tab PO DAILY #90 tab 03/18/19 08/18/20 History tablet celecoxib 200 mg capsule 200 mg PO DAILY #90 cap 03/18/19 08/18/20 History estradiol 0.5 mg tablet 0.5 mg PO DAILY #90 tab 03/18/19 08/18/20 History hydrochlorothiazide 25 mg tablet 50 mg PO DAILY #60 tab 03/18/19 08/18/20 History levothyroxine 150 mcg tablet 150 mcg PO DAILY #90 tab 03/18/19 08/18/20 History nebivolol 5 mg tablet 5 mg PO DAILY #30 tab 03/18/19 08/18/20 History omeprazole 20 mg capsule,delayed 20 mg PO DAILY #90 cap 03/18/19 08/18/20 History release spironolactone 25 mg tablet 25 mg PO DAILY #90 tab 03/18/19 08/18/20 History Ascorbic Acid/Multivit-Min 1 packet PO BID 08/18/20 08/18/20 History [Emergen-C Immune Plus Packet] Calcium Carbonate/Vitamin D3 3 tab PO DAILY 08/18/20 08/18/20 History [Calcium 600+D Softgel] Inulin/Chromium Picolinate [Fiber 1 tab PO BID 08/18/20 08/18/20 History Gummies] Mv-Min/Folic/Vit K/Lut/[id number] 1 tab PO DAILY 08/18/20 08/18/20 History [Alive Women's 50 Plus Tablet] [place]-3/Dha/Epa/Fish Oil [[place] 3 1 cap PO DAILY 08/18/20 08/18/20 History 500 Softgel] Psyllium Husk [Daily Fiber] 1 cap PO BID 08/18/20 08/18/20 History Sulfamethoxazole/Trimethoprim 1 tab PO BID 08/18/20 08/18/20 History [Sulfamethoxazole-Tmp Ds Tablet] Ertapenem Sodium [Invanz 1gm Vial] 1 gm IV Q24H vial 08/21/20 Rx Vancomycin HCl [Vancomycin 1000mg 1,500 mg IV Q12H vial 08/21/20 Rx Vial] Height: 1.68 m Weight: 108.862 kg Laboratory Results:: Laboratory Results - last 24 hr 08/24/20 09:20: Sodium 136, Potassium 4.4, Chloride 98, Carbon Dioxide 33 H, Anion Gap 9.4, BUN 20 H, Creatinine 1.10 H, Estimated Creat Clear 95, Estimated GFR 51 L, Est GFR ( Amer) 62, Glucose 126 H, Calcium 9.8 08/24/20 09:20: Vancomycin Trough 15.5 H Medical History: Reports:: Gastroesophageal Reflux Disease(GERD), Hyperlipidemia, Hypertension Denies:: Cancer, Diabetes Mellitus Type 1, Diabetes Mellitus Type 2, MRSA Assessment and Plan - Assessment and plan all Dx Assessment and Plan for all problems:: BASED ON PATIENT FACTORS AND VANCOMYCIN TROUGH LEVEL OF 15.5, RECOMMEND CONTINUING VANCOMYCIN 2250 MG IV Q24H. PHARMACY WILL CONTINUE TO MONITOR AND ADJUST APPROPRIATE.
== END 2020-08-24 12:40 | disposition home or self-care (01) ==
LOC: INF 09:02
PROVIDERS: Visit Provider Surgery
DX: L02.214 Cutaneous abscess of groin (principal)
CPT/HCPCS: 80048; 80202; 96365; 96366; 96367; G0463; J1335; J3370

== ENCOUNTER 2020-08-25 08:59 | Outpatient (CLI) | payer BC, SELFPAY ==
[2020-08-25 09:18] VITALS: BP 112/71; PULSE 65; RESP 18; TEMP 36.6; O2SAT 98
[2020-08-25 09:48] VITALS: BP 115/78; PULSE 69; RESP 18; O2SAT 97
[2020-08-25 10:18] VITALS: BP 124/75; PULSE 68; RESP 18; O2SAT 97
[2020-08-25 10:48] VITALS: BP 122/79; PULSE 61; RESP 18; O2SAT 98
[2020-08-25 11:18] VITALS: BP 121/75; PULSE 64; RESP 18; O2SAT 97
== END 2020-08-25 11:18 | disposition home or self-care (01) ==
LOC: INF 08:59
PROVIDERS: Visit Provider Surgery
DX: L02.214 Cutaneous abscess of groin (principal)
CPT/HCPCS: 96365; 96366; 96367; J1335; J3370

== ENCOUNTER 2020-08-26 08:58 | Outpatient (CLI) | payer BC, SELFPAY ==
[2020-08-26 09:31] VITALS: BP 118/60; PULSE 67; RESP 20; TEMP 36.5; O2SAT 96
[2020-08-26 10:01] VITALS: BP 128/63; PULSE 65; RESP 20; O2SAT 97
[2020-08-26 10:31] VITALS: BP 133/55; PULSE 66; RESP 20; O2SAT 97
[2020-08-26 11:01] VITALS: BP 130/59; PULSE 67; RESP 20; O2SAT 96
[2020-08-26 11:31] VITALS: BP 127/61; PULSE 64; RESP 20; O2SAT 97
[2020-08-26 12:20] VITALS: BP 124/54; PULSE 63; RESP 20; O2SAT 97
== END 2020-08-26 12:20 | disposition home or self-care (01) ==
LOC: INF 08:58
PROVIDERS: Visit Provider Surgery
DX: L02.214 Cutaneous abscess of groin (principal)
CPT/HCPCS: 96365; 96366; 96367; J1335; J3370

== ENCOUNTER 2020-08-27 08:40 | Outpatient (CLI) | payer BC, SELFPAY ==
[2020-08-27 08:49] VITALS: BMI 38.7
[2020-08-27 09:10] VITALS: BP 130/61; PULSE 69; RESP 18; TEMP 36.9; O2SAT 100
[2020-08-27 09:24] LABS: Anion Gap 10.5 mEq/L (5-15); Blood Urea Nitrogen 27 mg/dl (7-17); Calcium 9.7 mg/dl (8.4-10.2); Carbon Dioxide 30 mmol/L (22.0-30.0); Chloride 101 mmol/L (98-107); Creatinine Clearance Estimated 80 mL/min (50-200); Estimated Glomerular Filt Rate 42 ml/min (>60); GFR (African American) 51 ML/MIN (>60); Glucose 132 mg/dl (74-100); Potassium 4.5 mmoL/L (3.5-5.1); Sodium 137 mmol/L (136-145)
[2020-08-27 09:26] LABS: Vancomycin,Trough 19.9 ug/mL (5.0-10.0)
[2020-08-27 09:50] VITALS: BP 126/60; PULSE 64; RESP 18
[2020-08-27 10:25] VITALS: BP 109/55; PULSE 61; RESP 18
[2020-08-27 11:15] VITALS: BP 115/58; PULSE 61; RESP 18
[2020-08-27 12:00] VITALS: BP 126/68; PULSE 65; RESP 18
== END 2020-08-27 12:15 | disposition home or self-care (01) ==
LOC: INF 08:47
PROVIDERS: Visit Provider Surgery
DX: L02.214 Cutaneous abscess of groin (principal)
CPT/HCPCS: 80048; 80202; 96365; 96366; 96367; J1335; J3370

== ENCOUNTER 2020-08-28 08:50 | Outpatient (CLI) | payer BC, SELFPAY ==
[2020-08-28 09:00] VITALS: BP 125/68; PULSE 68; RESP 18; TEMP 36.6; O2SAT 99
[2020-08-28 09:30] VITALS: BP 132/66; PULSE 64; RESP 18
[2020-08-28 10:00] VITALS: BP 139/78; PULSE 60; RESP 18
[2020-08-28 11:45] VITALS: BP 139/67; PULSE 67; RESP 18
== END 2020-08-28 12:10 | disposition home or self-care (01) ==
LOC: INF 08:52
PROVIDERS: Visit Provider Surgery
DX: L02.214 Cutaneous abscess of groin (principal)
CPT/HCPCS: 96365; 96366; 96367; J1335; J3370

== ENCOUNTER → 2020-08-29 08:36 | Outpatient (CLI) | payer BC, SELFPAY ==
[2020-08-29 10:21] LABS: Anion Gap 11.7 mEq/L (5-15); Blood Urea Nitrogen 33 mg/dl (7-17); Calcium 9.8 mg/dl (8.4-10.2); Carbon Dioxide 31 mmol/L (22.0-30.0); Chloride 99 mmol/L (98-107); Estimated Glomerular Filt Rate 46 ml/min (>60); GFR (African American) 56 ML/MIN (>60); Glucose 107 mg/dl (74-100); Potassium 4.7 mmoL/L (3.5-5.1); Sodium 137 mmol/L (136-145)
[2020-08-29 10:34] LABS: Vancomycin,Trough 20.3 ug/mL (5.0-10.0)
== END ==
PROVIDERS: PCP Family Medicine; Visit Provider Surgery
DX: L02.214 Cutaneous abscess of groin (principal)
CPT/HCPCS: 80048; 80202; 96365; 96366; 96367; G0463; J1335; J3370

== ENCOUNTER 2020-08-30 08:47 | Outpatient (CLI) | payer BC, SELFPAY ==
--- NOTE | 2020-08-30 09:05 | P.CONPHA_ITS ---
- Pharmacy Consult Date: 08/30/20 Time: 09:05 Referring provider: DR. MAYEN Reason for Consult:: VANCOMYCIN TROUGH LEVEL Allergies and ADEs:: Allergies Allergy/AdvReac Type Severity Reaction Status Date / Time Penicillins Allergy Mild Rash Verified 08/28/20 13:15 Home Medications:: Home Medications Medication Instructions Recorded Confirmed Type allopurinol 300 mg tablet 300 mg PO DAILY #90 tab 03/18/19 08/28/20 History amlodipine 5 mg-valsartan 320 mg 1 tab PO DAILY #90 tab 03/18/19 08/28/20 History tablet celecoxib 200 mg capsule 200 mg PO DAILY #90 cap 03/18/19 08/28/20 History estradiol 0.5 mg tablet 0.5 mg PO DAILY #90 tab 03/18/19 08/28/20 History hydrochlorothiazide 25 mg tablet 50 mg PO DAILY #60 tab 03/18/19 08/28/20 History levothyroxine 150 mcg tablet 150 mcg PO DAILY #90 tab 03/18/19 08/28/20 History nebivolol 5 mg tablet 5 mg PO DAILY #30 tab 03/18/19 08/28/20 History omeprazole 20 mg capsule,delayed 20 mg PO DAILY #90 cap 03/18/19 08/28/20 History release spironolactone 25 mg tablet 25 mg PO DAILY #90 tab 03/18/19 08/28/20 History Ascorbic Acid/Multivit-Min 1 packet PO BID 08/18/20 08/28/20 History [Emergen-C Immune Plus Packet] Calcium Carbonate/Vitamin D3 3 tab PO DAILY 08/18/20 08/28/20 History [Calcium 600+D Softgel] Inulin/Chromium Picolinate [Fiber 1 tab PO BID 08/18/20 08/28/20 History Gummies] Mv-Min/Folic/Vit K/Lut/[id number] 1 tab PO DAILY 08/18/20 08/28/20 History [Alive Women's 50 Plus Tablet] [place]-3/Dha/Epa/Fish Oil [[place] 3 1 cap PO DAILY 08/18/20 08/28/20 History 500 Softgel] Psyllium Husk [Daily Fiber] 1 cap PO BID 08/18/20 08/28/20 History Ertapenem Sodium [Invanz 1gm Vial] 1 gm IV Q24H 08/24/20 08/28/20 History Vancomycin HCl [Vancomycin 1000mg 2,250 mg IV DAILY 08/24/20 08/28/20 History Vial] Height: 1.68 m Weight: 103.419 kg Laboratory Results:: VANCOMYCIN TROUGH OF 20.3 MG/DL Medical History: Reports:: Gastroesophageal Reflux Disease(GERD), Hyperlipidemia, Hypertension Denies:: Cancer, Diabetes Mellitus Type 1, Diabetes Mellitus Type 2, MRSA Assessment and Plan - Assessment and plan all Dx Assessment and Plan for all problems:: RECOMMEND CHANGING VANCOMYCIN DOSE FROM 2000 MG Q24H TO 1500 MG Q24H AT THIS TIME. WILL OBTAIN TROUGH LEVEL AND BMP ON 09/02/20.
[2020-08-30 09:11] VITALS: BP 131/79; PULSE 73; RESP 16; TEMP 36.7; O2SAT 98
== END 2020-08-30 11:48 | disposition home or self-care (01) ==
PROVIDERS: PCP Family Medicine; Visit Provider Surgery
DX: L02.214 Cutaneous abscess of groin (principal)
CPT/HCPCS: 96365; 96366; 96367; J1335; J3370

== ENCOUNTER 2020-08-31 08:50 | Outpatient (CLI) | payer BC, SELFPAY ==
[2020-08-31 09:10] VITALS: BP 132/69; PULSE 76; RESP 18; O2SAT 98
[2020-08-31 10:00] VITALS: BP 121/73; PULSE 67; RESP 18
[2020-08-31 11:48] VITALS: RESP 18
[2020-08-31 11:58] VITALS: BP 158/68; PULSE 65; RESP 18
== END 2020-08-31 11:58 | disposition home or self-care (01) ==
LOC: INF 08:54
PROVIDERS: Visit Provider Surgery
DX: L02.214 Cutaneous abscess of groin (principal)
CPT/HCPCS: 96365; 96366; 96367; J1335; J3370

== ENCOUNTER 2020-09-01 08:45 | Outpatient (CLI) | payer BC, SELFPAY ==
[2020-09-01 09:01] VITALS: BP 125/61; PULSE 65; RESP 17; TEMP 36.6; O2SAT 98
[2020-09-01 10:05] VITALS: BP 128/67; PULSE 61; RESP 17; O2SAT 97
[2020-09-01 11:06] VITALS: BP 126/65; PULSE 68; RESP 17; O2SAT 98
[2020-09-01 12:10] VITALS: BP 137/80; PULSE 83; RESP 17; O2SAT 97
== END 2020-09-01 12:15 | disposition home or self-care (01) ==
LOC: INF 08:49
PROVIDERS: Visit Provider Surgery
DX: L02.214 Cutaneous abscess of groin (principal)
CPT/HCPCS: 96365; 96366; 96367; J1335; J3370

== ENCOUNTER 2020-09-02 08:41 | Outpatient (CLI) | payer BC, SELFPAY ==
[2020-09-02] VITALS (7 sets, daily range): BP systolic 117–128; BP diastolic 61–69; PULSE 65–74; RESP 18; TEMP 36.6; O2SAT 97–98; BMI 38.7
[2020-09-02 09:10] LABS: Anion Gap 15.1 mEq/L (5-15); Blood Urea Nitrogen 35 mg/dl (7-17); Calcium 9.6 mg/dl (8.4-10.2); Carbon Dioxide 26 mmol/L (22.0-30.0); Chloride 102 mmol/L (98-107); Creatinine Clearance Estimated 80 mL/min (50-200); Estimated Glomerular Filt Rate 42 ml/min (>60); GFR (African American) 51 ML/MIN (>60); Glucose 150 mg/dl (74-100); Potassium 4.1 mmoL/L (3.5-5.1); Sodium 139 mmol/L (136-145)
[2020-09-02 09:31] LABS: Vancomycin,Trough 15.7 ug/mL (5.0-10.0)
--- NOTE | 2020-09-02 10:46 | P.CONPHA_ITS ---
- Pharmacy Consult Date: 09/02/20 Time: 10:46 Referring provider: DR. MAYEN Reason for Consult:: VANCOMYCIN TROUGH LEVEL Allergies and ADEs:: Allergies Allergy/AdvReac Type Severity Reaction Status Date / Time Penicillins Allergy Mild Rash Verified 08/28/20 13:15 Home Medications:: Home Medications Medication Instructions Recorded Confirmed Type allopurinol 300 mg tablet 300 mg PO DAILY #90 tab 03/18/19 09/02/20 History amlodipine 5 mg-valsartan 320 mg 1 tab PO DAILY #90 tab 03/18/19 09/02/20 History tablet celecoxib 200 mg capsule 200 mg PO DAILY #90 cap 03/18/19 09/02/20 History estradiol 0.5 mg tablet 0.5 mg PO DAILY #90 tab 03/18/19 09/02/20 History hydrochlorothiazide 25 mg tablet 50 mg PO DAILY #60 tab 03/18/19 09/02/20 History levothyroxine 150 mcg tablet 150 mcg PO DAILY #90 tab 03/18/19 09/02/20 History nebivolol 5 mg tablet 5 mg PO DAILY #30 tab 03/18/19 09/02/20 History omeprazole 20 mg capsule,delayed 20 mg PO DAILY #90 cap 03/18/19 09/02/20 History release spironolactone 25 mg tablet 25 mg PO DAILY #90 tab 03/18/19 09/02/20 History Ascorbic Acid/Multivit-Min 1 packet PO BID 08/18/20 09/02/20 History [Emergen-C Immune Plus Packet] Calcium Carbonate/Vitamin D3 3 tab PO DAILY 08/18/20 09/02/20 History [Calcium 600+D Softgel] Inulin/Chromium Picolinate [Fiber 1 tab PO BID 08/18/20 09/02/20 History Gummies] Mv-Min/Folic/Vit K/Lut/Phew866 1 tab PO DAILY 08/18/20 09/02/20 History [Alive Women's 50 Plus Tablet] [place]-3/Dha/Epa/Fish Oil [[place] 3 1 cap PO DAILY 08/18/20 09/02/20 History 500 Softgel] Psyllium Husk [Daily Fiber] 1 cap PO BID 08/18/20 09/02/20 History Ertapenem Sodium [Invanz 1gm Vial] 1 gm IV Q24H 08/24/20 09/02/20 History Vancomycin HCl [Vancomycin 1000mg 2,250 mg IV DAILY 08/24/20 09/02/20 History Vial] Height: 1.68 m Weight: 108.862 kg Laboratory Results:: Laboratory Results - last 24 hr 09/02/20 08:45: Sodium 139, Potassium 4.1, Chloride 102, Carbon Dioxide 26, Anion Gap 15.1 H, BUN 35 H, Creatinine 1.30 H, Estimated Creat Clear 80, Estimated GFR 42 L, Est GFR ( Amer) 51 L, Glucose 150 H, Calcium 9.6 09/02/20 08:50: Vancomycin Trough 15.7 H Medical History: Reports:: Gastroesophageal Reflux Disease(GERD), Hyperlipidemia, Hypertension Denies:: Cancer, Diabetes Mellitus Type 1, Diabetes Mellitus Type 2, MRSA Assessment and Plan - Assessment and plan all Dx Assessment and Plan for all problems:: BASED ON PATIENT FACTORS AND VANCOMYCIN TROUGH LEVEL OF 15.7, RECOMMEND CONTINUING CURRENT VANCOMYCIN DOSE OF 1,500MG IV Q24H ALONG WITH INVANZ 1GM IV Q24H UNTIL COURSE COMPLETION ON 09/04/20. PHARMACY WILL CONTINUE TO MONITOR UNTIL THAT TIME. -VENKATA BROWNING, ROSIED
== END 2020-09-02 11:59 | disposition home or self-care (01) ==
LOC: INF 08:41
PROVIDERS: Visit Provider Surgery
DX: L02.214 Cutaneous abscess of groin (principal)
CPT/HCPCS: 80048; 80202; 96365; 96366; 96367; J1335; J3370

== ENCOUNTER 2020-09-03 08:46 | Outpatient (CLI) | payer BC, SELFPAY ==
[2020-09-03 09:06] VITALS: BP 111/46; PULSE 64; RESP 18; TEMP 36.6; O2SAT 99
[2020-09-03 09:36] VITALS: BP 117/52; PULSE 68; RESP 18; O2SAT 98
[2020-09-03 10:06] VITALS: BP 122/61; PULSE 65; RESP 18; O2SAT 98
[2020-09-03 10:36] VITALS: BP 120/59; PULSE 66; RESP 18; O2SAT 99
[2020-09-03 11:06] VITALS: BP 128/52; PULSE 67; RESP 18; O2SAT 99
[2020-09-03 11:48] VITALS: BP 136/47; PULSE 67; RESP 18; O2SAT 98
== END 2020-09-03 11:48 | disposition home or self-care (01) ==
LOC: INF 08:46
PROVIDERS: Visit Provider Surgery
DX: L02.214 Cutaneous abscess of groin (principal)
CPT/HCPCS: 96365; 96366; 96367; J1335; J3370

== ENCOUNTER 2020-09-04 09:00 | Outpatient (CLI) | payer BC, SELFPAY ==
[2020-09-04 09:25] VITALS: BP 137/57; PULSE 67; RESP 17; TEMP 36.6; O2SAT 100
[2020-09-04 10:12] VITALS: BP 133/72; PULSE 68; RESP 17; O2SAT 98
[2020-09-04 11:01] VITALS: BP 135/68; PULSE 63; RESP 17; O2SAT 97
[2020-09-04 11:45] VITALS: BP 131/71; PULSE 67; RESP 17; O2SAT 98
[2020-09-04 12:30] VITALS: BP 138/67; PULSE 62; RESP 17; O2SAT 97
[2020-09-04 12:50] VITALS: BP 141/69; PULSE 64; RESP 17; O2SAT 98
== END 2020-09-04 12:51 | disposition home or self-care (01) ==
LOC: INF 09:08
PROVIDERS: Visit Provider Surgery
DX: L02.214 Cutaneous abscess of groin (principal)
CPT/HCPCS: 96365; 96366; 96367; J1335; J3370

== ENCOUNTER 2020-09-11 09:55 | Outpatient (CLI) | payer BC, SELFPAY | END 2020-09-11 10:30 | disposition home or self-care (01) | LOC: INF 09:59 | PROVIDERS: Visit Provider Surgery | DX: Z45.2 Encounter for adjustment and management of vascular access device (principal); L02.214 Cutaneous abscess of groin; Z48.01 Encounter for change or removal of surgical wound dressing | CPT/HCPCS: G0463 ==

== ENCOUNTER 2020-11-09 08:00 | Outpatient (RCR) | payer BC, SELFPAY ==
--- NOTE | 2020-09-28 08:52 | HMH.RHREAS ---
Rehab Reassessment Rehab OP Re-assessment Start: 09/28/20 08:49 Freq: Status: Active Protocol: Document 09/28/20 08:50 DORIE (Rec: 09/28/20 08:52 DORIE [id number]) Electronically Signed By Maxi Balck, PT 09/28/20 08:50 Rehab Re-assessment Subjective Subjective Pt reports mild increased itching at the center area of the wound this date. Objective Objective Notes L anterior hip wound: L= 1.0 cm, W= 12.8 cm, D= 0.7 cm. Wound has closed quite a bit over past wk, no tunnelling noted at this time. Wound bed is fuilly granulated and drainage continues to decrease . MD observed the wound and agrees with holding VAC dressing at this time in place of collagen primary dressing to aid healing. Assessment Progress Assessment Progressing as Expected Assessment Notes Wound healing very well with full granulation tissue at the wound base. Tunnel has fully closed. Patient goals met ST,2,3 Goals Not Met LT,2,3,4,5,6 Revised Goals none Plan Plan Continue per initial POC Frequency of Therapy 2 x/wk Duration of therapy 8 wks Time and Billing Re-Eval Time 15 Re-Eval Billing Units 1 PHYSICIAN CERTIFICATION: I certify the specified therapy services for Dionne Spear are required, authorized, and reviewed every 30 days.
== END 2020-11-09 08:05 | disposition home or self-care (01) ==
LOC: PT 08:00
PROVIDERS: PCP Family Medicine; Visit Provider Surgery
DX: L02.214 Cutaneous abscess of groin (principal)
CPT/HCPCS: 97161; 97164; 97597; 97598; 97605

== ENCOUNTER → 2021-06-14 15:21 | Outpatient (CLI) | payer BC, SELFPAY ==
--- NOTE | 2021-06-14 15:27 | XR_ITS ---
FINAL REPORT CLINICAL HISTORY: EFFUSION, RT KNEE, fall 12/2020, knee pain FINDINGS: RIGHT KNEE 3 views of the right knee were obtained. There is healed fracture deformity of the proximal fibula. There is no dislocation. There is sharpening of the tibial spines. Visualized joint spaces are normally aligned. There is a small joint effusion. IMPRESSION: Small joint effusion with no acute bony abnormality.. Reviewed, Interpreted and Dictated by Adin Jose MD Transcribed by Shaylee Small Authenticated by Adin Jose MD on 06/14/2021 04:58:57 PM [facility]
== END ==
PROVIDERS: PCP Family Medicine; Visit Provider Family Medicine
DX: M25.461 Effusion, right knee (principal)
CPT/HCPCS: 73562

== ENCOUNTER 2021-11-03 08:00 | Outpatient (RCR) | payer BC, SELFPAY | END 2021-11-03 08:05 | disposition home or self-care (01) | LOC: PT 08:00 | PROVIDERS: PCP Family Medicine; Visit Provider Orthopaedic Surgery | DX: M17.11 Unilateral primary osteoarthritis, right knee (principal) | CPT/HCPCS: 97110; 97163 ==

== ENCOUNTER → 2021-12-28 12:32 | Outpatient (CLI) | payer BC, SELFPAY ==
--- NOTE | 2021-12-28 12:38 | XR_ITS ---
FINAL REPORT CLINICAL HISTORY: LT SHOULDER PAIN, fall 3 months ago FINDINGS: LEFT SHOULDER 3 views demonstrate no acute fracture or dislocation. There is mild AC joint degenerative change. The visualized bony structures are well aligned. No soft tissue abnormality is seen. IMPRESSION: No acute process. Reviewed, Interpreted and Dictated by Barry Escalante III, MD Transcribed by Jayce Lincoln Authenticated and [facility]
== END ==
PROVIDERS: PCP Family Medicine; Visit Provider Family Medicine
DX: M25.512 Pain in left shoulder (principal)
CPT/HCPCS: 73030